=== PATIENT | female | born 1965 | race African-American/Black ===

== ENCOUNTER 2024-09-10 14:25 | Outpatient (AMB) | payer OTHER, MEDICARE, MEDICAID, SELFPAY ==
--- NOTE | 2024-09-10 14:29 | A.OFFPC_ITS ---
Vital Signs 09/10/24 14:38 Height 5 ft 1 in Weight 145 lb 8 oz BMI 27.5 BP 126/78 Blood Pressure Location Lt brachial Position Sitting Pulse 92 Pulse Source Pulse Oximeter Pulse Oximetry (%) 96 Oxygen Delivery Method Room Air Intake Visit Reasons: Est. Care Intake Note: New patient visit Allergies No Known Allergies Allergy (Verified 09/10/24 14:30) Tobacco use date assessed: 09/10/24 Dental Screening Dental Screen Date: 09/10/24 Did you have a dental visit in the last 12 months?: Yes Did you have a dental problem in the last 6 months where you did not have access to dental care?: No Was dental information given to patient?: Patient has dentist HPI HPI Comments History of Present Illness Details This is a 59 year old female with past medical history of allergies, frequent UTI, presenting to [facility] For three months last year had significant change in bowels. Increased frequency and looser stools. Infrequent heartburn. No vomiting. No blood in the stool. OA: On ibuprofen. Has significant pain in the right groin that travels down anterior, deep right thigh. Hurts when sitting, standing. No injury. Chronic low right back pain Frustrated by weight gain Colonoscopy: Had colonoscopy at [facility] ~ 50 ROS CONSTITUTIONAL: Denies weight loss, fever and chills. HEENT: Denies changes in vision and hearing. RESPIRATORY: Denies SOB and cough. CV: Denies palpitations and CP GI: Denies abdominal pain, nausea, vomiting and diarrhea. : Denies dysuria and urinary frequency. MSK: Denies new myalgia and joint pain. SKIN: Denies rash and pruritus. NEUROLOGICAL: Denies headache PSYCHIATRIC: Denies recent changes in mood. PHYSICAL EXAM: GENERAL: Alert and oriented x 3. NAD EYES: EOMI. Anicteric. HENT: Moist mucous membranes. No scleral icterus. No cervical lymphadenopathy. LUNGS: Clear to auscultation bilaterally. CARDIOVASCULAR: Regular rate and rhythm. No murmur. No JVD. ABDOMEN: Soft, non-tender +bs EXTREMITIES: No edema. Non-tender. SKIN: No rashes or lesions. Warm. NEUROLOGIC: No focal neurological deficits. CN II-XII grossly intact PSYCHIATRIC: Cooperative. Appropriate mood and affect [facility] Surgical History No pertinent past surgical history Family History Mother Alcoholic HTN (hypertension) Maternal Grandfather Cancer of unknown origin Other FH: mental illness Substance abuse Social History Housing: House Alcohol intake: former Comment: quit 20 years ago Patient Tobacco Use Status: Former Tobacco user Tobacco use type: Cigarette Cigarettes Per Day: 10 Years Smoked: 20 e-Cigarette/Vaping Use: Never Used Second Hand Smoke Exposure: No Substance Use Type: Former Substance User service: No Current occupational status: employed 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 1. Little interest or pleasure in doing things: not at all 2. Feeling down, depressed, or hopeless: not at all 3. Trouble falling or staying asleep, or sleeping too much: several days 4. Feeling tired or having little energy: several days 5. Poor appetite or overeating: nearly every day 6. Feeling bad about yourself - or that you are a failure or have let yourself or your family down: not at all 7. Trouble concentrating on things, such as reading the newspaper or watching television: not at all 8. Moving or speaking so slowly that other people could have noticed. Or the opposite - being so fidgety or restless that you have been moving around a lot more than usual: not at all 9. Thoughts that you would be better off or of hurting yourself in some way: not at all Total score: 5 Depression Screening Interpretation: Positive Depression Screening Follow-up: Declines treatment Depression Screening Done: Yes 77362 - PHQ-9 Billing: Yes Source: Developed by Drs. Fabio Harris, Pascale Gan, Michael Brandt and colleagues, with an educational aria from [employer]. Thrive Questionnaire Date Thrive assessed: 08/24/24 I am a: Patient What is your living situation today?: I have a steady place to live Within the past 12 months, did the food you bought not last and you didn't have the money to get more?: I choose not to answer this question Within the past 12 months, did you worry whether your food would run out before you got money to buy more?: I choose not to answer this question Do you have trouble paying for medicines?: No Do you have trouble getting transportation to medical appointments?: No Do you have trouble paying your heating and electricity bill?: No Do you have trouble taking care of your child, family member or friend?: No Do you have trouble with day-to-day activities such as bathing, preparing meals, shopping, managing finances, etc.?: No Are you currently unemployed and looking for a job?: No Are you interested in more education?: No Please select the resources that you would like help with: None Currently or been in a relationship where the following occur: No concerns reported THRIVE Score: 0 Physical exam (Primary Care) Vital Signs: Last Vital Signs Pulse 92 09/10/24 14:38 BP 126/78 09/10/24 14:38 Pulse Ox 96 09/10/24 14:38 Oxygen Delivery Method Room Air 09/10/24 14:38 BMI result Body Mass Index 27.5 Tobacco/Smoking Status: Tobacco use Status Tobacco use date assessed 09/10/24 09/10/24 14:43 Patient Tobacco Use Status Former Tobacco user 09/10/24 14:43 Tobacco use type Cigarette 09/10/24 14:43 e-Cigarette/Vaping Use Never Used 09/10/24 14:43 PHQ-9: PHQ-9 Score PHQ-9: Total score 5 09/13/24 08:46 Depression Screening Interpretation: Positive Depression Screening Follow-up: Declines treatment Thrive Assessment: Date of Thrive Assessment Date Thrive assessed 08/24/24 09/10/24 14:30 Currently or been in a relationship where the following occur: No concerns reported Coding Level of Care Code New Pt Level 4 (87407) Complex EM visit Add On G2211 Diagnoses Encounter to establish care Z76.89 Change in bowel function R19.8 Right inguinal pain R10.31 Laterality: right Additional Codes PHQ-9 - 81850 - PHQ-9 Billing: Yes ([id number]) Assessment & Plan Assessment & Plan (1) Encounter to establish care: Code(s): Z76.89 - Persons encountering health services in other specified circumstances Category: Medical Plan: 59 year old female presenting to [facility]. Past medical, surgical, social and family history reviewed (2) Change in bowel function: Code(s): R19.8 - Other specified symptoms and signs involving the digestive system and abdomen Category: Medical Plan: referral to GI Labs, stool ordered (3) Groin pain: Code(s): R10.30 - Lower abdominal pain, unspecified Category: Medical Qualifiers: Laterality: right Qualified Code(s): R10.31 - Right lower quadrant pain Plan: xray hip and lower back referral to rheumatology Orders: Orders Comprehensive Met. Panel 09/10/24 R35.0 - Frequency of micturition, Z13.0 - Encounter for screening for diseases of the blood and blood-forming organs and certain disorders involving the immune mechanism, Z13.220 - Encounter for screening for lipoid disorders, Z13.228 - Encounter for screening for other metabolic disorders TSH reflex Free T4 09/10/24 R35.0 - Frequency of micturition, Z13.0 - Encounter for screening for diseases of the blood and blood-forming organs and certain disorders involving the immune mechanism, Z13.220 - Encounter for screening for lipoid disorders, Z13.228 - Encounter for screening for other metabolic disorders Hemoglobin A1c 09/10/24 R35.0 - Frequency of micturition, Z13.0 - Encounter for screening for diseases of the blood and blood-forming organs and certain disorders involving the immune mechanism, Z13.220 - Encounter for screening for lipoid disorders, Z13.228 - Encounter for screening for other metabolic disorders H pylori Ag Stool 09/10/24 R35.0 - Frequency of micturition, Z13.0 - Encounter for screening for diseases of the blood and blood-forming organs and certain disorders involving the immune mechanism, Z13.220 - Encounter for screening for lipoid disorders, Z13.228 - Encounter for screening for other metabolic disorders Celiac Disease Panel 09/10/24 R19.5 - Other fecal abnormalities Complete Blood Count Auto Diff 09/10/24 R35.0 - Frequency of micturition, Z13.0 - Encounter for screening for diseases of the blood and blood-forming organs and certain disorders involving the immune mechanism, Z13.220 - Encounter for screening for lipoid disorders, Z13.228 - Encounter for screening for other metabolic disorders UA CC w/rflx Micro + Cult 09/10/24 R35.0 - Frequency of micturition, Z13.0 - Encounter for screening for diseases of the blood and blood-forming organs and certain disorders involving the immune mechanism, Z13.220 - Encounter for screening for lipoid disorders, Z13.228 - Encounter for screening for other metabolic disorders Calprotectin, Fecal 09/10/24 R35.0 - Frequency of micturition, Z13.0 - Encounter for screening for diseases of the blood and blood-forming organs and certain disorders involving the immune mechanism, Z13.220 - Encounter for screening for lipoid disorders, Z13.228 - Encounter for screening for other metabolic disorders Pancreatic Elastase-1 09/10/24 R35.0 - Frequency of micturition, Z13.0 - Encounter for screening for diseases of the blood and blood-forming organs and certain disorders involving the immune mechanism, Z13.220 - Encounter for screening for lipoid disorders, Z13.228 - Encounter for screening for other me tabolic disorders Ova and Parasite 09/10/24 R35.0 - Frequency of micturition, Z13.0 - Encounter for screening for diseases of the blood and blood-forming organs and certain disorders involving the immune mechanism, Z13.220 - Encounter for screening for lipoid disorders, Z13.228 - Encounter for screening for other metabolic disorders Lyme IgG/IgM w/reflex to WB 09/10/24 M54.50 - Low back pain, unspecified, R10.30 - Lower abdominal pain, unspecified, R19.5 - Other fecal abnormalities Erythrocyte Sedimentation Rate 09/10/24 M54.50 - Low back pain, unspecified, R10.30 - Lower abdominal pain, unspecified XR lumbar spine 2-3V 09/10/24 M54.50 - Low back pain, unspecified, R10.30 - Lower abdominal pain, unspecified XR hip RT w PEL1V 09/10/24 M54.50 - Low back pain, unspecified, R10.30 - Lower abdominal pain, unspecified Referrals Rheumatology Referral M54.50 - Low back pain, unspecified, R10.30 - Lower abdominal pain, unspecified COMMERCIAL ACCOUNTANT Referral Z12.4 - Encounter for screening for malignant neoplasm of cervix Gastroenterology Referral R19.5 - Other fecal abnormalities, R19.8 - Other specified symptoms and signs involving the digestive system and abdomen Medications: New semaglutide 3 mg PO DAILY 30 tabs 1RF 30 days
[2024-09-10 14:38] VITALS: BP 126/78; PULSE 92; O2SAT 96; BMI 27.5
--- OUTSIDE RECORDS SUMMARY | 2024-09-10 18:53 | XMS_ITS | Clinical Summary ---
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 DX:COPD, mi ld ([facility]) Dermatophytosis of nail 01/29/2013 DX:[place] tophytosis of nail Dyspareunia in female 12/29/2017 DX:Dyspare unia in female 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 DX:Histo ry of positive PPD History of substance abuse ([facility]) 12/16/2011 DX:History of substance abuse ([facility]); COMMENT: 01/2018 Alcohol and cocaine in remission Insomnia 01/21/2014 DX:Insomnia Major depressive disorder wi th single episode, in full remission ([facility]) 12/29/2017 DX:Major depressi ve disorder with single episode, in full remission ([facility]) Perimenopausal vasomotor symptoms 12/29/2017 DX:Perimenopausal vasomotor symptoms Secondary amenorrhea 12/29/2017 DX:Secondar y amenorrhea Family History Medical History Relation Name Comments Other cancer Maternal Grandfather Relation Name Status Comments Maternal Grandfather Social History Tobacco Use Types Packs/Day Years Used Date Smoking Tobacco: Former Smokeless Tobacco: Never Alcohol Use Standard Drinks/Week Comments Yes 0 (1 standard drink = 0.6 oz pur e alcohol) Sex and Gender Information Value Date Recorded Sex Assigned at Not on file Gender Identity Not on file Sexual Orientation Not on file Obstetrics History Plan of Treatment Health Maintenance Due Date Last Done Comments Breast Cancer Screening 1966 Pneumococcal Vaccine: Pediat rics (0 to 5 Years) and At-Risk Patients (6 to 64 Years) (1 of 2 - PCV) 1972 Cervical Cancer Screening: P ap Smear 1987 Hepatitis B Vaccines (2 of 3 - 19+ 3-dose series) 04/30/2004 04/02/2004 Zoster Vaccines (1 of 2) 2016 Colorectal Cancer Screening: Colonoscopy 07/18/2022 Depression Screening 07/18/2022 HIV Screening 07/18/2022 Hepatitis C Screening 07/18/2022 Social Influencers of Health Screening 07/18/2022 DTaP,Tdap,and Td Vaccines (2 - Td or Tdap) 01/15/2023 01/15/2013 COVID-19 Vaccine (1 - 2023-2 5 season) 2024 Influenza Vaccine (#1) 2024 HIB Vaccines Aged Out No longer eligi ble based on patient's age to complete this topic HPV Vaccines Aged Out No longer eligi ble based on patient's age to complete this topic Hepatitis A Vaccines Aged Out No long er eligible based on patient's age to complete this topic IPV Vaccines Aged Out No longer eligi ble based on patient's age to complete this topic MMR Vaccines Aged Out No longer eligi ble based on patient's age to complete this topic Meningococcal ACWY Vaccine Aged Out N o longer eligible based on patient's age to complete this topic RSV Immunization Patients Un levon 20 months Aged Out No longer eligible b ased on patient's age to complete this topic Varicella Vaccines Aged Out No longer eligible based on patient's age to complete this topic Care Teams Vegetable Farming Supervisor Relationship Specialty Start Date End Date Caitlyn Lawton MD PCP - General Internal Medicine 07/04/18
--- OUTSIDE RECORDS SUMMARY | 2024-09-10 18:53 | XMS_ITS | Patient Health Record ---
Author Organization Team [employer] [facility] Address [address] [place] [address] Care Team Providers Care Loans Consultant Name Role Phone RAJAT MOULTON NP Primary Care Provider Unavail able SAAD PETTIT Unavailable [phone] Allergies No Known Allergies Reason For Referral No Information Medications Medication SIG (Take, Route, Fr equency, Duration) Notes Start Date End Date Status Estradiol 0.1 MG/GM as directed (1 gram) Vaginal Once a day for 90 days 09/07/2019 Not-Takin g Valtrex 500 MG 1 tablet Orally Once a day for 90 days Active Claritin 10 MG 1 tablet Orally Once a day for 30 day(s) Active Social History Tobacco Use: Social History Observation Description Date Details (start date - stop date) Former Smoker NA - NA Tobacco Use/Smoking Question Answer Notes Are you a former smoker How long has it been since you last smoked? 1-5 years Alcohol Screen (Audit-C) Question Answer Notes Did you have a drink contain ing alcohol in the past year? Yes How often did you have a dri nk containing alcohol in the past year? 2 to 3 times a week (3 points) How many drinks did you have on a typical day when you were drinking in the past year? 1 or 2 drinks (0 point) How often did you have 6 or more drinks on one occasion in the past year? Never (0 point) Points 3 Interpretation Positive Sexual History Question Answer Notes Had sex in the past 12 months (vaginal, oral, or anal)? Yes with Men only Prevention strategies discussed: Other Tobacco use other than smoking: Question Answer Notes Are you an other tobacco user? No Problems Problem Type SNOMED Code ICD Code Onset Dates Problem Status W/U Status Risk Notes Problem Postmenopausal atrophic vaginitis (67357227) Postmenopausal atrophic vaginitis (N95.2) Active confirmed Problem Herpes simplex viral infection (15629468) Herpesviral infection, unspecified (B00.9) Active confirmed Plan Of Treatment Pending Test Test Name Order Date Urinalysis 09/07/2019 MM Digital Screening Mammogram 3D 2020 MM Digital Screening Mammogram 3D 2021 MM Digital Screening Mammogram 3D 2019 Insurance Providers Payer Name Payer Address Payer Phone Subscriber Number Group Number Insured Name Patient Relationship to Insured Coverage Start Date Coverage End Date [facility] [address] [place] [address] [id number] RHEA REEVES Self - patient is the insured Medical (General) History Medical History History ICD Code Headache R51 Herpesviral infection, unspecified B00.9 Surgical History Surgery Date(Month/Year) x 3 Hospitalization History Reason Date(Month/Year) childbirth
--- OUTSIDE RECORDS SUMMARY | 2024-09-10 18:53 | XMS_ITS | Clinical Summary ---
Author Organization [facility] Address [address] [place] [address] Care Team Providers Care Electrophysiology Technician Name Role Phone Unavailable Primary Care Provider Unavailabl e Source Comments PLEASE NOTE, if this patient is a minor, it may be UNLAWFUL to discuss sensitive information that is contained in these records (such as FAMILY PLANNING, MENTAL HEALTH or SUBSTANCE ABUSE) with the minor patient's parent or other person without the patient's specific authorization.[facility] Medications ciprofloxacin HCl (CIPRO) 250 mg tabletIndications :Urinary tract infection with hematuria, site unspecified Take 1 Tab by mouth 2 (two) times daily 6 Tab 03/13/2019 Active Social History Tobacco Use Types Packs/Day Years Used Date Smoking Tobacco: Never Smokeless Tobacco: Never Alcohol Use Standard Drinks/Week Comments Not Currently 0 (1 standard drink = 0.6 oz pur e alcohol) Social Connections Answer Date Recorded Social Connections and Isolation 0 04/09/2019 Financial Resource Strain Answer Date R ecorded Financial Resource Strain 0 2018 Stress Answer Date Recorded Stress 0 04/09/2019 Physical Activity Answer Date Recorded Physical Activity 0 04/09/2019 Food Insecurity Answer Date Recorded Food 0 04/09/2019 Transportation Needs Answer Date Record ed Transportation 0 04/09/2019 Housing Stability Answer Date Recorded Housing 0 04/09/2019 Safety and Environment Answer Date Robin rded Safety 0 04/09/2019 Utilities Answer Date Recorded Utilities 0 04/09/2019 Employment Answer Date Recorded Employment 0 04/09/2019 Comments No Sex and Gender Information Value Date Recorded Sex Assigned at Female 03/16/2019 8:04 AM PDT Legal Sex Female 6:07 AM PDT Gender Identity Female 03/16/2019 8:04 AM PDT Sexual Orientation Don't know 03/16/2019 8: 04 AM PDT Last Filed Vital Signs Vital Sign Reading Time Taken Comments Blood Pressure 111/71 03/13/2019 9:19 AM EDT Pulse 94 03/13/2019 9:19 AM EDT Temperature - - Respiratory Rate 18 03/13/2019 9:19 AM EDT Oxygen Saturation - - Inhaled Oxygen Concentration - - Weight 61.7 kg (136 lb) 03/13/2019 9:19 AM EDT Height - - Body Mass Index - - Plan of Treatment Not on file Insurance [facility]
== END 2024-09-10 15:21 | disposition home or self-care (01) ==
PROVIDERS: PCP Internal Medicine; Visit Provider Internal Medicine
DX: Z76.89 Persons encountering health services in other specified circumstances (principal); R19.8 Other specified symptoms and signs involving the digestive system and abdomen; R10.31 Right lower quadrant pain

== ENCOUNTER → 2024-09-10 14:25 | Outpatient (BNVA) | payer OTHER, MEDICARE, MEDICAID, SELFPAY | PROVIDERS: PCP Internal Medicine; Visit Provider Internal Medicine | DX: Z76.89 Persons encountering health services in other specified circumstances (principal); R19.8 Other specified symptoms and signs involving the digestive system and abdomen; R10.31 Right lower quadrant pain | CPT/HCPCS: 96127 ==

== ENCOUNTER 2024-09-10 15:31 | Outpatient (REF) | payer OTHER, SELFPAY ==
[2024-09-10 17:46] LABS: MANUAL DIFF FLAG NO
[2024-09-10 17:57] LABS: Appearance Urine Cloudy; Color Urine Yellow; Glucose Urine UA Negative (Negative); Leukocyte Esterase Urine Small (1+) (Negative); Nitrite Urine Negative (Negative); PH 5.5 (5.0-9.0); Specific Gravity - Urine 1.025 (1.005-1.025); UMIC TRIGGER UACC YES; Urine Blood Trace (Negative); Urine Ketones Negative (Negative); Urine Protein Negative (Neg-Trace)
[2024-09-10 18:00] LABS: Basophils Percent Auto 0.5 % (0-2); Eosinophils Absolute Auto 0.1 X10*3/uL (0.0-0.4); Eosinophils Percent Auto 1.2 % (0-4); Hemoglobin 13.4 g/dl (12.0-16.0); Imm Gran Abs Auto 0.01 X10*3/uL (0.00-0.03); Imm Gran Pct Auto 0.1 % (0.0-0.4); Lymphocytes Absolute Auto 3.1 X10*3/uL (1.2-4.9); Lymphocytes Percent Auto 40.5 % (20-40); Mean Corpuscular HGB Conc 33.5 g/dl (31.0-35.0); Mean Corpuscular Hemoglobin 29.3 pg (27.0-33.0); Mean Corpuscular Volume 87.5 fL (80.0-98.0); Mean Platelet Volume 10.6 fL (9.4-12.3); Monocytes Absolute Auto 0.4 X10*3/uL (0.1-1.2); Monocytes Percent Auto 5.4 % (2-11); Neutrophils Percent Auto 52.3 % (45-73); Platelet Count 309 X10*3/uL (160-400); Red Blood Count 4.57 X10*6/uL (4.20-5.50); Red Cell Distribution Width 13.6 % (11.0-16.0); White Blood Count 7.7 X10*3/uL (4.8-10.8)
[2024-09-10 18:02] LABS: Bacteria Urine 2+ (None Seen); Hyaline Casts Urine 0-2 /LPF (0-2); RBC Urine 0-2 /HPF (0-2); UACC Culture Trigger YES
[2024-09-10 18:13] LABS: Alanine Aminotransferase 26 U/L (0-31); Albumin Level 4.2 g/dL (3.5-5.0); Alkaline Phosphatase 66 U/L (39-117); Anion Gap 10 (12-20); Aspartate Amino Transferase 23 U/L (5-31); Bilirubin Total 0.3 mg/dL (0.0-1.0); Blood Urea Nitrogen 21 mg/dL (9-16); Calcium 9.2 mg/dL (8.4-10.2); Carbon Dioxide 22 mmol/L (22-29); Chloride 112 mmol/L (96-108); Estimated Glomerular Filt Rate > 60; Glucose Random 108 mg/dL (60-115); Sodium 140 mmol/L (135-145); Total Protein 7.6 g/dL (6.5-8.0)
[2024-09-10 18:30] LABS: TSH reflex Free T4 0.75 uIU/mL (0.32-4.0)
[2024-09-10 18:42] LABS: Erythrocyte Sedimentation Rate 10 MM/HR (0-20)
--- OUTSIDE RECORDS SUMMARY | 2024-09-10 19:32 | XMS_ITS | Clinical Summary ---
Author Organization [facility] Address [address] [place] [address] Care Team Providers Care Stitch Bonding Machine Drawer In Name Role Phone Caitlyn Lawton MD Primary Care Provider Medical History Medical History Date Comments Genital herpes 10/03/2007 DX:Genital herpe s Bipolar 1 disorder ([facility]) 10/11/2013 DX: Bipolar 1 disorder ([facility]) Allergic rhinitis 11/23/2013 DX:Allergic rh initis COPD, mild (CMS/HCC) 09/15/2016 DX:COPD, mi ld ([facility]) Dermatophytosis of nail 01/29/2013 DX:[place] tophytosis of nail Dyspareunia in female 12/29/2017 DX:Dyspare unia in female 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 DX:Histo ry of positive PPD History of substance abuse ([facility]) 12/16/2011 DX:History of substance abuse ([facility]); COMMENT: 01/2018 Alcohol and cocaine in remission Insomnia 01/21/2014 DX:Insomnia Major depressive disorder wi th single episode, in full remission ([facility]) 12/29/2017 DX:Major depressi ve disorder with single episode, in full remission ([facility]) Perimenopausal vasomotor symptoms 12/29/2017 DX:Perimenopausal vasomotor symptoms [...] age to complete this topic Care Teams Stitch Bonding Machine Drawer In Relationship Specialty Start Date End Date Caitlyn Lawton MD PCP - General Internal Medicine 07/04/18
--- OUTSIDE RECORDS SUMMARY | 2024-09-10 19:32 | XMS_ITS | Clinical Summary ---
Author Organization [facility] Address [address] [place] [address] Care Team Providers Care History Card Clerk Name Role Phone Unavailable Primary Care Provider [...] Plan of Treatment Not on file Insurance [facility]
[2024-09-11 07:54] LABS: Estimated Average Glucose 117 mg/dL; Hemoglobin A1C 135.0589 umol/L; Hemoglobin A1c % 5.7 % (<6.0); Total Hemoglobin (HGBA1C) 3506.6804 umol/L
[2024-09-11 13:17] LABS: Lyme Abs Screen <0.90 index
[2024-09-11 20:58] LABS: Immunoglobulin A 146 mg/dL (47-310); Transglutaminase IgA <1.0 U/mL
== END 2024-09-10 15:32 | disposition home or self-care (01) ==
LOC: HO.WFDLDS 15:31
PROVIDERS: Visit Provider Internal Medicine
DX: R19.5 Other fecal abnormalities (principal); Z13.220 Encounter for screening for lipoid disorders; Z13.0 Encounter for screening for diseases of the blood and blood-forming organs and certain disorders involving the immune mechanism; Z13.228 Encounter for screening for other metabolic disorders; R35.0 Frequency of micturition; R10.30 Lower abdominal pain, unspecified; M54.50 Low back pain, unspecified; Z13.1 Encounter for screening for diabetes mellitus
CPT/HCPCS: 36415; 80053; 81001; 82784; 83036; 84443; 85025; 85652; 86364; 86617; 86618; 87086

== ENCOUNTER 2024-12-17 06:51 | Emergency (ER) | payer OTHER, SELFPAY ==
--- NOTE | ~2024-12-17 | XR_ITS ---
EXAMINATION: XR HIP, RIGHT CLINICAL INFORMATION: pain COMPARISON: None available. TECHNIQUE: AP pelvis, and 2 views of the right hip. FINDINGS: There is no fracture, dislocation, or suspicious bone lesion. There is normal bony mineralization. There is normal alignment. There is minimal degenerative arthritis in both hip joints. Hip joints otherwise have a normal appearance. There is a normal acetabular coverage. The sacrum appears intact. The SI joints appear normal. No soft tissue abnormalities are evident. XR/XR hip RT w PEL1V IMPRESSION: No acute bony abnormalities. Electronically signed by: Kyle Waite MD 12/17/2024 08:46 AM EDT
[2024-12-17 06:59] VITALS: BP 177/87; PULSE 89; RESP 24; O2SAT 98; BMI 28.3
[2024-12-17 07:03] VITALS: TEMP 36.9
--- NOTE | 2024-12-17 07:04 | ECG_ITS ---
Test Reason : OVERDOSE Blood Pressure : */* mmHG Vent. Rate : 86 BPM Atrial Rate : 86 BPM P-R Int : 134 ms QRS Dur : 78 ms QT Int : 378 ms P-R-T Axes : 22 -9 5 degrees QTcB Int : 452 ms Normal sinus rhythm Minimal voltage criteria for LVH, may be normal variant ( R in aVL ) Borderline ECG No previous ECGs available Referred By: Rita Barber Electronically Signed By: MYA ALICEA
--- NOTE | 2024-12-17 07:13 | ED.OVERDOSE ---
HPI - Overdose General Chief Complaint: General Medical Stated Complaint: Took too much tramadol, hip pain Time Seen by Provider: 12/17/24 07:00 Source: patient Mode of arrival: ambulatory Limitations: no limitations History of Present Illness ED Provider: KHLOE SONG Narrative: 59 yo female with PMH of allergies but no other medications no psych medications who was prescribed tramadol by her PCP recently for atraumatic R hip pain. NO xrays done. The patient notes her pain was more severe last night and so she ended up taking extra tramadol a total of 300mg since 9pm. She states she now feels her body is tight and shaking. No hx of IVDA with the hip, numnbess, weakness, rash. Tramadol is also a new medication for her. The only other medication is loratadine complaint: accidental overdose Onset (ago): hour(s) (9pm) Substance Ingested total of 300mg tramadol: Strength of Substance: 100 Number of Pills Ingested: 3 Total Dose: 300 How Overdose Was Discovered: called 911 Context: Accidental Overdose: other (had hip pain) Associated symptoms: headaches, dizziness and other Treatments Prior to Arrival: none Related Data Home Medications ?Medication ?Instructions ?Recorded ?Confirmed ibuprofen 600 mg tablet mg PO 09/10/24 Previous Rx's ?Medication ?Instructions ?Recorded semaglutide 3 mg tablet 3 mg PO DAILY 30 days #30 tabs 09/10/24 tramadol 50 mg tablet 50 mg PO BID PRN pain #14 tabs 09/19/24 loratadine 10 mg capsule (Allergy 10 mg PO DAILY #90 caps 12/05/24 Relief (loratadine)) lidocaine 5 % topical patch 1 patch topical DAILY #30 ea 12/17/24 methocarbamol 750 mg tablet 750 mg PO BID PRN muscle spasm #20 12/17/24 tabs prednisone 20 mg tablet 40 mg (2 x 20 mg) PO DAILY 5 days 12/17/24 #10 tabs Allergies Allergy/AdvReac Type Severity Reaction Status Date / Time No Known Allergies Allergy Verified 12/17/24 07:01 Review of Systems Review of Systems: Constitutional : No Fever, pos Chills, No Fatigue ENT/Mouth : No sore throat, No Rhinorrhea Eyes: No Eye Pain, No Swelling, No Redness Cardiovascular : No Chest Pain, No SOB, No Dyspnea on Exertion Respiratory : No Cough, No Sputum Gastrointestinal : No Nausea, No Vomiting, No Diarrhea, No abdominal Pain Genitourinary : No Dysuria, No Urinary Frequency, No Hematuria, Musculoskeletal : No joint pain, No Myalgias, No Joint Swelling Skin : No Skin Lesions, No rash Neuro : pos Weakness, No Numbness, No Dizziness, no Headache Psych : pos Anxiety/Panic, No Depression All other systems reviewed and are negative PMFSH Past Medical History Attestation statement: The following information was validated with the patient. Source: old records reviewed Medical History Screening for hyperlipidemia Low back pain Surgical History No pertinent past surgical history Family History Family History Mother Alcoholic HTN (hypertension) Maternal Grandfather Cancer of unknown origin Other FH: mental illness Substance abuse Social History Social History Housing: House Alcohol intake: former Comment: quit 20 years ago Patient Tobacco Use Status: Former Tobacco user Tobacco use type: Cigarette Cigarettes Per Day: 10 Years Smoked: 20 Smoked in Last 30 Days: Yes e-Cigarette/Vaping Use: Never Used Second Hand Smoke Exposure: No Use of substances other than those prescribed or required for medical reasons: No Substance Use Type: Former Substance User Advance Directives: No Advance Directives Information Provided: Yes Do you have a plan to hurt others: No Plan service: No Current occupational status: employed 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 Oriented X3. anxious mild acute distress. Eyes: Pupils equal, round and reactive to light. 3mm ENT: Pharynx normal. Neck: Normal inspection. Neck supple. CVS: Normal heart rate and rhythm. Pulses normal. Respiratory: No respiratory distress. Breath sounds normal. Abdomen: Soft and nontender. Skin: Skin warm and dry. Normal skin color. Normal skin turgor. Extremities: No lower extremity edema. No calf ttp Neuro: Oriented X 3. No motor deficit. No sensory deficit. CN2-12 intact. no clonus and no hyperreflexia Medications Administered Discontinued Medications Generic Name Dose Route Start Last Admin Trade Name Farrukhq PRN Reason Stop Dose Admin Diazepam 2.5 mg 12/17/24 07:05 12/17/24 07:26 Diazepam 10 Mg/2 Ml Cartridge IVPUSH 12/17/24 07:06 2.5 mg STAT STA Administration Ketorolac Tromethamine 15 mg 12/17/24 08:25 12/17/24 08:53 Ketorolac Tromethamine 15 Mg/Ml Vial IVPUSH 12/17/24 08:26 15 mg ONCE ONE Administration Medical Decision Making Medical Decision Making [facility] Narrative: 59 yo female with no sig PMH only on loratadine who comes in after feeling weird and shaky after taking 3 doses of 100mg tramadol to treat undifferented R hip pain for 6 weeks. She has no numbness, weakness, clonus, hyperreflexia and pupils are 3mm - no signs of serotonin syndrome at this time. Will obtain EKG for qtc, labs, start on IV valium and monitor. She denies SI states it was done to treat pain. patient now states she took 100mg at 3pm yesterday, 100mg at 9pm yesterday and then 100mg at 5am today Differential Diagnosis Differential Diagnoses: The differential diagnosis associated with the presentation includes overdose, serotonin syndrome, anxiety hip pain - arthralgia no signs of infection and normal distal pulses Admission/Observation Consideration of admission/observation: Escalation of care including admission/observation considered labs and EKG reassuring VS stable xray no acute findings would start on flexeril, pain patches and prednisone in case of tendonitis hold tramadol improved stable for DC - no signs of serotonin syndrome Lab Data [facility] Lab Attestation statement: I reviewed the patient's lab results. 12/17/24 07:45 12/17/24 07:45 Labs: Lab Results 12/17/24 Range/Units 07:45 WBC 8.2 (4.8-10.8) X10*3/uL RBC 4.43 (4.20-5.50) X10*6/uL Hgb 13.0 (12.0-16.0) g/dl Hct 38.1 (37.0-47.0) % MCV 86.0 (80.0-98.0) fL MCH 29.3 (27.0-33.0) pg MCHC 34.1 (31.0-35.0) g/dl RDW 13.4 (11.0-16.0) % Plt Count Not Reportable MPV Not Reportable Immature Gran % (Auto) 0.4 (0.0-0.4) % Neut % (Auto) 70.1 (45-73) % Lymph % (Auto) 21.9 (20-40) % [place] % (Auto) 6.6 (2-11) % Eos % (Auto) 0.6 (0-4) % Baso % (Auto) 0.4 (0-2) % Lymph # (Auto) 1.8 (1.2-4.9) X10*3/uL [place] # (Auto) 0.5 (0.1-1.2) X10*3/uL Eos # (Auto) 0.1 (0.0-0.4) X10*3/uL Baso # (Auto) 0.0 (0.0-0.2) X10*3/uL Abs Immat Gran (auto) 0.03 (0.00-0.03) X10*3/uL Absolute Neuts (auto) 5.8 (2.0-8.3) x10*3/uL Absolute Nucleated RBC 0.000 (0.0-0.012) X10*3/uL Nucleated RBC % (auto) 0.0 (0.0-0.2) /100WBC Smear Tech's Comments VERIFIED Sodium 139 (135-145) mmol/L Potassium 3.9 (3.3-5.1) mmol/L Chloride 108 (96-108) mmol/L Carbon Dioxide 21 L (22-29) mmol/L Anion Gap 14 (12-20) BUN 12 (9-16) mg/dL Creatinine 0.70 (0.5-1.4) mg/dL Estim Creat Clear Calc 77.3 Estimated GFR > 60 Random Glucose 90 (60-115) mg/dL Calcium 8.8 (8.4-10.2) mg/dL Magnesium 1.9 (1.6-2.6) mg/dL Total Bilirubin 0.6 (0.0-1.0) mg/dL Direct Bilirubin 0.2 (0.0-0.5) mg/dL AST 26 (5-31) U/L ALT 25 (0-31) U/L Alkaline Phosphatase 53 (39-117) U/L Total Protein 7.2 (6.5-8.0) g/dL Albumin 4.1 (3.5-5.0) g/dL Independent Interpretation I performed an independent interpretation of an: EKG and Plain X-Ray (arthritis) Interpretation: Rate: 86 Rhythm: NSR [place]: left Normal P waves. Normal RITA. Normal QRS complex. ST T wave : inverted t waves V1 and V2, III qTC: 452 prior studies: no acute ischemia The study has been interpreted contemporaneously by me. . Radiology Impression Discussion of test interpretation with radiology: I have reviewed the radiologist's reading. Independent Historian Clinical information obtained from an independent historian. History obtained from or confirmed by: Spouse External Record Review External record reviewed: Outpatient record Prescription Management I considered prescription management with: Other Discharge Plan Discharge Clinical Impression: Overdose Qualifiers: Encounter type: initial encounter Injury intent: accidental or unintentional Qualified Code(s): T50.901A - Poisoning by unspecified drugs, medicaments and biological substances, accidental (unintentional), initial encounter Hip joint pain Qualifiers: Laterality: right Qualified Code(s): M25.551 - Pain in right hip Patient Disposition: Home, Self-Care Instructions: Arthralgia (ED), Adult Overdose (ED) Additional Instructions: STOP TAKING TRAMADOL PLEASE FOLLOW UP WITH YOUR DOCTOR at this time would start you on muscle relaxers (avoid tylenol as there is some tylenol in it), pain patches and steroids in case of tendonitis. Your xray shows nothing severe. rest and stay hydrated return for any worsening symptoms or concerns FINDINGS: There is no fracture, dislocation, or suspicious bone lesion. There is normal bony mineralization. There is normal alignment. There is minimal degenerative arthritis in both hip joints. Hip joints otherwise have a normal appearance. There is a normal acetabular coverage. The sacrum appears intact. The SI joints appear normal. No soft tissue abnormalities are evident. XR/XR hip RT w PEL1V IMPRESSION: No acute bony abnormalities. Electronically signed by: Klye Waite MD 12/17/2024 08:46 AM EDT RP Prescriptions: New prednisone 20 mg tablet 40 mg PO DAILY 5 Days Qty: 10 0RF lidocaine 5 % adhesive patch,medicated 1 patch topical DAILY Qty: 30 0RF Rx Instructions: leave on most painful area for up to 12 hrs methocarbamol 750 mg tablet 750 mg PO BID PRN (Reason: muscle spasm) Qty: 20 0RF No Action tramadol 50 mg tablet 50 mg PO BID PRN (Reason: pain) Qty: 14 0RF Allergy Relief (loratadine) 10 mg capsule 10 mg PO DAILY Qty: 90 0RF ibuprofen 600 mg tablet PO semaglutide 3 mg tablet 3 mg PO DAILY 30 Days Qty: 30 1RF Stand Alone Forms: Work/School Release Print Language: Choose Not To Answer
[2024-12-17] MEDS: diazePAM 10 MG/2 ML CARTRIDGE 2.5 MG IVPUSH (07:26)
--- OUTSIDE RECORDS SUMMARY | 2024-12-17 07:45 | XMS_ITS | Clinical Summary ---
Author Organization [facility] [facility] Address [address] [place] [address] Care Team Providers Care Electrochemist Name Role Phone Caitlyn Lawton MD Primary Care Provider Medical History Medical History Date Comments Genital herpes 10/03/2007 DX:Genital herpe s Bipolar 1 disorder (CMS/HCC V24, CMS/HCC V28) 10/11/2013 DX:Bipolar 1 disorder ([facility]) Allergic rhinitis 11/23/2013 DX:Allergic rh initis COPD, mild (CMS/HCC V24, CMS/HCC V28) 09/15/2016 DX:COPD, mild ([facility]) Dermatophytosis of nail 01/29/2013 DX:[place] tophytosis of nail Dyspareunia in female 12/29/2017 DX:Dyspare unia in female 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 DX:Histo ry of positive PPD History of substance abuse ( CMS/HCC V24, CMS/HCC V28) 12/16/2011 DX:History of substance abus e ([facility]); COMMENT: 01/2018 Alcohol and cocaine in remission Insomnia 01/21/2014 DX:Insomnia Major depressive disorder wi th single episode, in full remission (CMS/HCC V24) 12/29/2017 DX:Major depr essive disorder with single episode, in full remission ([facility]) Perimenopausal vasomotor symptoms 12/29/2017 DX:Perimenopausal vasomotor symptoms Secondary amenorrhea 12/29/2017 DX:Secondar y amenorrhea Family History Medical History Relation Name Comments Other cancer Maternal Grandfather Relation Name Status Comments Maternal Grandfather Social History Tobacco Use Types Packs/Day Years Used Date Smoking Tobacco: Former Smokeless Tobacco: Never Alcohol Use Standard Drinks/Week Comments Yes 0 (1 standard drink = 0.6 oz pur e alcohol) Comments Unknown Sex and Gender Information Value Date Recorded Sex Assigned at Not on file Legal Sex Female 7:33 AM EST Gender Identity Not on file Sexual Orientation Not on file Obstetrics History Plan of Treatment Health Maintenance Due Date Last Done Comments Breast Cancer Screening 1966 Pneumococcal Vaccine: 50+ Ye ars (1 of 2 - PCV) 1985 Pneumococcal Vaccine: Pediat rics (0 to 5 Years) and At-Risk Patients (6 to 64 Years) (1 of 2 - PCV) 1985 Cervical Cancer Screening: P ap Smear 1987 Hepatitis B Vaccines (2 of 3 - 19+ 3-dose series) 04/30/2004 04/02/2004 Zoster Vaccines (1 of 2) 2016 Colorectal Cancer Screening: Colonoscopy 07/18/2022 Depression Screening 07/18/2022 HIV Screening 07/18/2022 Hepatitis C Screening 07/18/2022 Social Influencers of Health Screening 07/18/2022 DTaP,Tdap,and Td Vaccines (2 - Td or Tdap) 01/15/2023 01/15/2013 COVID-19 Vaccine ( - 2023-2 5 season) 2024 Influenza Vaccine (Season Ended) 2025 HIB Vaccines Aged Out No longer eligi [...] patient's age to complete this topic Meningococcal B Vaccine Aged Out No l onger eligible based on patient's age to complete this topic RSV Immunization Patients Un levon 20 months Aged Out No longer eligible b ased on patient's age to complete this topic Varicella Vaccines Aged Out No longer eligible based on patient's age to complete this topic Care Teams Electrochemist Relationship Specialty Start Date End Date Caitlyn Lawton MD PCP - General Internal Medicine 07/04/18
--- OUTSIDE RECORDS SUMMARY | 2024-12-17 07:45 | XMS_ITS | Patient Health Record ---
Author Organization [facility] [employer] [facility] Address [address] [place] [address] Care Team Providers Care Dog Day Care Attendant Name Role Phone RAJAT MOULTON NP Primary Care Provider Unavail able SAAD PETTIT Unavailable [phone] Allergies No Known Allergies Reason For Referral [...] Status Risk Notes Problem Postmenopausal atrophic vaginitis (N95.2) Active confirmed Problem Herpes simplex viral infection (28835452) Herpesviral infection, unspecified (B00.9) Active confirmed Plan Of Treatment Pending Test Test Name Order Date Urinalysis 09/07/2019 MM Digital Screening Mammogram 3D 2020 MM Digital Screening Mammogram 3D 2021 MM Digital Screening Mammogram 3D 2019 Insurance Providers Payer Name Payer Address Payer Phone Subscriber Number Group Number Insured Name Patient Relationship to Insured Coverage Start Date Coverage End Date [facility] [address] [place] [id number] RHEA REEVES Self - patient is the insured Medical (General) History Medical History History ICD Code Headache R51 Herpesviral infection, unspecified B00.9 Surgical History Surgery Date(Month/Year) x 3 Hospitalization History Reason Date(Month/Year) childbirth
--- OUTSIDE RECORDS SUMMARY | 2024-12-17 07:45 | XMS_ITS | Clinical Summary ---
Author Organization [facility] Address [address] [place] [address] Care Team Providers Care Road Machine Runner Name Role Phone Unavailable Primary Care Provider [...] Plan of Treatment Not on file Insurance [facility]
[2024-12-17 08:04] LABS: Basophils Percent Auto 0.4 % (0-2); Eosinophils Absolute Auto 0.1 X10*3/uL (0.0-0.4); Eosinophils Percent Auto 0.6 % (0-4); Hematocrit 38.1 % (37.0-47.0); Imm Gran Abs Auto 0.03 X10*3/uL (0.00-0.03); Imm Gran Pct Auto 0.4 % (0.0-0.4); Lymphocytes Absolute Auto 1.8 X10*3/uL (1.2-4.9); Lymphocytes Percent Auto 21.9 % (20-40); MANUAL DIFF FLAG SCAN; Mean Corpuscular HGB Conc 34.1 g/dl (31.0-35.0); Mean Corpuscular Hemoglobin 29.3 pg (27.0-33.0); Monocytes Absolute Auto 0.5 X10*3/uL (0.1-1.2); Monocytes Percent Auto 6.6 % (2-11); Neutrophils Absolute Auto 5.8 x10*3/uL (2.0-8.3); Neutrophils Percent Auto 70.1 % (45-73); PLT CLUMP 1; Red Blood Count 4.43 X10*6/uL (4.20-5.50); Red Cell Distribution Width 13.4 % (11.0-16.0); SCAN SMEAR FLAG 1
[2024-12-17 08:05] LABS: White Blood Count 8.2 X10*3/uL (4.8-10.8)
[2024-12-17 08:10] LABS: Alanine Aminotransferase 25 U/L (0-31); Albumin Level 4.1 g/dL (3.5-5.0); Alkaline Phosphatase 53 U/L (39-117); Anion Gap 14 (12-20); Aspartate Amino Transferase 26 U/L (5-31); Bilirubin Direct 0.2 mg/dL (0.0-0.5); Bilirubin Total 0.6 mg/dL (0.0-1.0); Blood Urea Nitrogen 12 mg/dL (9-16); Calcium 8.8 mg/dL (8.4-10.2); Carbon Dioxide 21 mmol/L (22-29); Chloride 108 mmol/L (96-108); Creatinine Clr Calc Pharmacy 77.3; Estimated Glomerular Filt Rate > 60; Glucose Random 90 mg/dL (60-115); Magnesium 1.9 mg/dL (1.6-2.6); Potassium 3.9 mmol/L (3.3-5.1); Sodium 139 mmol/L (135-145); Total Protein 7.2 g/dL (6.5-8.0)
[2024-12-17 08:24] LABS: SLIDE REVIEW VERIFIED
[2024-12-17 08:35] VITALS: BP 106/57; PULSE 75; RESP 16; O2SAT 100
[2024-12-17] MEDS: Ketorolac Tromethamine 15 MG/ML VIAL IVPUSH (08:53)
[2024-12-17 10:05] VITALS: BP 144/56; PULSE 72; RESP 18; TEMP 36.6; O2SAT 98
== END 2024-12-17 10:06 | disposition home or self-care (01) ==
PROVIDERS: Emergency Provider Emergency Medicine; PCP Internal Medicine
DX: T40.421A Poisoning by tramadol, accidental (unintentional), initial encounter (principal); M25.551 Pain in right hip; R94.31 Abnormal electrocardiogram [ECG] [EKG]; Z79.899 Other long term (current) drug therapy; Z87.891 Personal history of nicotine dependence
CPT/HCPCS: 36415; 73502; 80048; 80076; 83735; 85025; 93005; 96374; 96375; 99284; J1885; J3360

== ENCOUNTER → 2024-12-17 07:04 | Outpatient (BNV) | payer OTHER, SELFPAY | PROVIDERS: Emergency Provider Emergency Medicine; PCP Internal Medicine; Visit Provider Internal Medicine | DX: T50.901A Poisoning by unspecified drugs, medicaments and biological substances, accidental (unintentional), initial encounter (principal) | CPT/HCPCS: 93010 ==

== ENCOUNTER → 2024-12-17 07:12 | Outpatient (BNV) | payer OTHER, SELFPAY | PROVIDERS: Emergency Provider Emergency Medicine; PCP Internal Medicine; Visit Provider Radiology Diagnostic Radiology | DX: M25.551 Pain in right hip (principal) | CPT/HCPCS: 73502 ==

== ENCOUNTER 2024-12-25 11:56 | Outpatient (AMB) | payer OTHER, SELFPAY ==
--- NOTE | 2024-12-25 11:59 | A.OFFVIS_ITS ---
Vital Signs 12/25/24 12:00 Height 5 ft 1 in Weight 140 lb 6.951 oz BMI 26.5 BP 150/110 H Blood Pressure Location Rt brachial Position Standing Pulse 94 Pulse Source Pulse Oximeter Pulse Oximetry (%) 99 Oxygen Delivery Method Room Air Intake Visit Reasons: back pain Intake Note: Patient presents today for lower back pain. pt is having difficulty with right leg pain and is not able to walk properly. Accompanied by: Self / Same As Patient Allergies No Known Allergies Allergy (Verified 12/25/24 12:00) HPI HPI back pain: Details: New Patient evaluation. 6 week onset of right hip pain radiating to right buttocks progressing to involve right thigh. Constant. Pain got worse this past Tuesday. No falls. No trauma. Laying more than 30 minutes aggravates pain. Ibuprofen 1800mg every 6 hours without benefit for the last 6 weeks. Yesterday she took tramadol 500mg without benefit. She had tremors and went to ED. Tylenol is ineffective. Lidocaine patch is ineffective. Methacarbamol is ineffective. Occationally drinks alcohol. No use of recreational drugs. 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 She takes loratadine for allergies: trees, pollen etc. No pmx or psx. [facility] Medical History Screening for hyperlipidemia Low back pain Surgical History No pertinent past surgical history Family History Mother Alcoholic HTN (hypertension) Maternal Grandfather Cancer of unknown origin Other FH: mental illness Substance abuse Social History Housing: House Alcohol intake: former Comment: quit 20 years ago Patient Tobacco Use Status: Former Tobacco user Tobacco use type: Cigarette Cigarettes Per Day: 10 Years Smoked: 20 e-Cigarette/Vaping Use: Never Used Second Hand Smoke Exposure: No Substance Use Type: Former Substance User service: No Current occupational status: employed 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 She has tenderness of right trochanteric bursa. Good lumbar flexion. Limited hip flexion and external rotation due to pain. Office Procedures AMB Joint Injection/Aspiration Joint Injection/Aspiration Details: Right trochanteric bursa Prep: site was prepped using aseptic technique Injected: 40 mg of, Kenalog, with 1 mL of and 1% plain lidocaine Procedure: The patient tolerated the procedure well. Postprocedure protocol was discussed with patient. Coding 01888 - Glenohumeral/Tronchanteric Bursa/Intraarticular Procedure code (CPT) selection complete Office Meds lidocaine (PF) 10 mg/mL (1 %) injection solution Performing Provider: Serge Vasquez MD Performing Location: [facility] [place] [facility] Administered by: Serge Vasquez MD on 12/25/24 13:34 Dose Route Admin Location Dispensed Lot Number Expiration Date [facility] Windshield Repair Technician 10 mg Infiltration 2 mL [id number] [facility] Kenalog 40 mg/mL suspension for injection Performing Provider: Serge Vasquez MD Performing Location: [facility] [place] [facility] Administered by: Serge Vasquez MD on 12/25/24 13:34 Dose Route Admin Location Dispensed Lot Number Expiration Date [facility] Windshield Repair Technician 40 mg intrabursal 1 mL [place] [id number] [facility] Assessment & Plan Assessment & Plan (1) Trochanteric bursitis, right hip: Comment: Pain is uncontrolled radiating to groin region. We discussed conservative management. She is taking too much ibuprofen. Failed Tylenol, tramadol, methocarbamol. X-ray of bilateral hips revealed minimal osteoarthritis, which is likely not the primary origin of her pain. Code(s): M70.61 - Trochanteric bursitis, right hip Category: Medical Plan: Patient received right trochanteric bursa cortisone injection Labs ordered with kidney function and liver function Letter given to patient to excuse her from work with return date December 27. Patient may call office if she needs more time to rest for an extension. return to clinic in 1-2 months (2) Lumbar radiculopathy, chronic: Comment: 6 week history. Code(s): M54.16 - Radiculopathy, lumbar region Category: Medical Plan: L-spine x-ray ordered Labs ordered to check kidney function liver function. If normal, I will prescribe alternate NSAID. Return to clinic in 1-2 months Orders: Orders Alanine Aminotransferase Today M70.61 - Trochanteric bursitis, right hip Aspartate Amino Transferase Today M70.61 - Trochanteric bursitis, right hip Creatinine Today M70.61 - Trochanteric bursitis, right hip AMB Joint Injection/Aspiration Today M70.61 - Trochanteric bursitis, right hip XR lumbar spine 2-3V Today M70.61 - Trochanteric bursitis, right hip Complete Blood Count Auto Diff Today M70.61 - Trochanteric bursitis, right hip Medications: New Kenalog (triamcinolone acetonide) 40 mg intrabursal ONCE 1 mL 0RF NS M70.61 - Trochanteric bursitis, right hip lidocaine (PF) 10 mg Infiltration ONCE 1 mL 0RF M70.61 - Trochanteric bursitis, right hip Coding Level of Care Code New Pt Level 4 (46837) Diagnoses Trochanteric bursitis, right hip M70.61 Lumbar radiculopathy, chronic M54.16 CPT Codes Coding - Joint 7: 99413 - Glenohumeral/Tronchanteric Bursa/Intraarticular ([id number])
[2024-12-25 12:00] VITALS: BP 150/110; PULSE 94; O2SAT 99; BMI 26.5
--- OUTSIDE RECORDS SUMMARY | 2024-12-25 13:19 | XMS_ITS | Clinical Summary ---
Author Organization [facility] Address [address] [place] [address] Care Team Providers Care Warhead Maintenance Specialist Name Role Phone Unavailable Primary Care Provider [...] Plan of Treatment Not on file Insurance [facility]
--- OUTSIDE RECORDS SUMMARY | 2024-12-25 13:19 | XMS_ITS | Clinical Summary ---
Author Organization [employer] [facility] Address [address] [place] [address] Care Team Providers Care Grainer Machine Name Role Phone Caitlyn Lawton MD Primary Care Provider Medical History Medical History Date Comments Genital herpes 10/03/2007 DX:Genital herpe s Bipolar 1 disorder (CMS/HCC V24, CMS/HCC V28) 10/11/2013 DX:Bipolar 1 disorder ([facility]) Allergic rhinitis 11/23/2013 DX:Allergic rh initis COPD, mild (CMS/HCC V24, CMS/HCC V28) 09/15/2016 DX:COPD, mild ([facility]) Dermatophytosis of nail 01/29/2013 DX:[place] tophytosis of nail Dyspareunia in female 12/29/2017 DX:Dyspare unia in female 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 DX:Histo ry of positive PPD History of substance abuse ( CMS/HCC V24, CMS/HCC V28) 12/16/2011 DX:History of substance abus e ([facility]); COMMENT: 01/2018 Alcohol and cocaine in remission Insomnia 01/21/2014 DX:Insomnia Major depressive disorder wi th single episode, in full remission (CMS/HCC V24) 12/29/2017 DX:Major depr essive disorder with single episode, in full remission ([facility]) Perimenopausal vasomotor symptoms 12/29/2017 DX:Perimenopausal vasomotor symptoms [...] age to complete this topic Care Teams Grainer Machine Relationship Specialty Start Date End Date Caitlyn Lawton MD PCP - General Internal Medicine 07/04/18
--- OUTSIDE RECORDS SUMMARY | 2024-12-25 13:19 | XMS_ITS | Patient Health Record ---
Author Organization [facility] Address [address] [place] [address] Care Team Providers Care Treatment Manager Name Role Phone RAJAT MOULTON NP Primary Care Provider Unavail able SAAD PETTIT Unavailable [phone] Allergies No Known Allergies Reason For Referral [...] Status Risk Notes Problem Postmenopausal atrophic vaginitis (73386956) Postmenopausal atrophic vaginitis (N95.2) Active confirmed Problem Herpesviral infection, unspecified (B00.9) Active confirmed Plan Of Treatment Pending Test Test Name Order Date Urinalysis 09/07/2019 MM Digital Screening Mammogram 3D 2020 MM Digital Screening Mammogram 3D 2021 MM Digital Screening Mammogram 3D 2019 Insurance Providers Payer Name Payer Address Payer Phone Subscriber Number Group Number Insured Name Patient Relationship to Insured Coverage Start Date Coverage End Date [facility] [address] [place] [address] [id number] RHEA REEVES Self - patient is the insured Medical (General) History Medical History History ICD Code Headache R51 Herpesviral infection, unspecified B00.9 Surgical History Surgery Date(Month/Year) x 3 Hospitalization History Reason Date(Month/Year) childbirth
== END 2024-12-25 13:39 | disposition home or self-care (01) ==
LOC: HO.RHES 11:56
PROVIDERS: PCP Internal Medicine; Visit Provider Internal Medicine Rheumatology
DX: M70.61 Trochanteric bursitis, right hip (principal); M54.16 Radiculopathy, lumbar region
CPT/HCPCS: 20610; 99203

== ENCOUNTER 2024-12-25 11:56 | Outpatient (REF) | payer OTHER, SELFPAY ==
--- NOTE | ~2024-12-25 | XR_ITS ---
EXAMINATION: XR LUMBOSACRAL SPINE CLINICAL INFORMATION: M70.61 - Trochanteric bursitis, right hip COMPARISON: None available. TECHNIQUE: Three views of the lumbosacral spine. FINDINGS: Rudimentary ribs at T12. Endplate sclerosis marginal osteophyte formation and decreased intervertebral disc height at L4-5. Multilevel marginal osteophyte formation and endplate sclerosis throughout the axial skeleton. No acute cortical disruption or gross malalignment. Probable discontinuous sacrococcyx junction. XR/XR lumbar spine 2-3V IMPRESSION: Multilevel thoracolumbar spondylosis more pronounced at L4-5. Probable subacute to old trauma at the sacrococcyx junction. Electronically signed by: Ab Farooq MD 12/25/2024 02:37 PM EDT
--- OUTSIDE RECORDS SUMMARY | 2024-12-25 14:46 | XMS_ITS | Clinical Summary ---
Author Organization [facility] Address [address] [place] [address] Care Team Providers Care Pickle Cutter Name Role Phone Unavailable Primary Care Provider [...] Plan of Treatment Not on file Insurance [facility]
--- OUTSIDE RECORDS SUMMARY | 2024-12-25 14:46 | XMS_ITS | Clinical Summary ---
Author Organization [facility] Address [address] [place] [address] Care Team Providers Care Store Receiver Name Role Phone Caitlyn Lawton MD Primary Care Provider Medical History Medical History Date Comments Genital herpes 10/03/2007 DX:Genital herpe s Bipolar 1 disorder (CMS/HCC V24, CMS/HCC V28) 10/11/2013 DX:Bipolar 1 disorder ([facility]) Allergic rhinitis 11/23/2013 DX:Allergic rh initis COPD, mild (CMS/HCC V24, CMS/HCC V28) 09/15/2016 DX:COPD, mild ([facility]) Dermatophytosis of nail 01/29/2013 DX:[place] tophytosis of nail Dyspareunia in female 12/29/2017 DX:Dyspare unia in female 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 DX:Histo ry of positive PPD History of substance abuse ( CMS/HCC V24, CMS/HCC V28) 12/16/2011 DX:History of substance abus e ([facility]); COMMENT: 01/2018 Alcohol and cocaine in remission Insomnia 01/21/2014 DX:Insomnia Major depressive disorder wi th single episode, in full remission (CMS/HCC V24) 12/29/2017 DX:Major depr essive disorder with single episode, in full remission ([facility]) Perimenopausal vasomotor symptoms 12/29/2017 DX:Perimenopausal [...] age to complete this topic Care Teams Store Receiver Relationship Specialty Start Date End Date Caitlyn Lawton MD PCP - General Internal Medicine 07/04/18
[2024-12-25 18:45] LABS: Alanine Aminotransferase 25 U/L (0-31); Aspartate Amino Transferase 30 U/L (5-31); Estimated Glomerular Filt Rate > 60
== END 2024-12-25 11:57 | disposition home or self-care (01) ==
LOC: HO.XRAY 11:56
PROVIDERS: PCP Internal Medicine; Visit Provider Internal Medicine Rheumatology
DX: M70.61 Trochanteric bursitis, right hip (principal); M54.16 Radiculopathy, lumbar region
CPT/HCPCS: 20610; 36415; 72100; 82565; 84450; 84460; J2003; J3300

== ENCOUNTER → 2024-12-25 14:13 | Outpatient (BNV) | payer OTHER, SELFPAY | PROVIDERS: PCP Internal Medicine; Visit Provider Radiology Diagnostic Radiology | DX: M47.815 Spondylosis without myelopathy or radiculopathy, thoracolumbar region (principal); M70.61 Trochanteric bursitis, right hip | CPT/HCPCS: 72100 ==

== ENCOUNTER 2025-01-01 07:53 | Outpatient (REF) | payer OTHER, SELFPAY ==
--- OUTSIDE RECORDS SUMMARY | 2025-01-01 09:10 | XMS_ITS | Clinical Summary ---
Author Organization [facility] Address [address] [place] [address] Care Team Providers Care Reefer Engineer Name Role Phone Unavailable Primary Care Provider [...] Plan of Treatment Not on file Insurance [facility]
--- OUTSIDE RECORDS SUMMARY | 2025-01-01 09:10 | XMS_ITS | Clinical Summary ---
Author Organization [facility] Address [address] [place] [address] Care Team Providers Care Encoding Clerk Name Role Phone Caitlyn Lawton MD Primary Care Provider Medical History Medical History Date Comments Genital herpes 10/03/2007 DX:Genital herpe s Bipolar 1 disorder (CMS/HCC V24, CMS/HCC V28) 10/11/2013 DX:Bipolar 1 disorder ([facility]) Allergic rhinitis 11/23/2013 DX:Allergic rh initis COPD, mild (CMS/HCC V24, CMS/HCC V28) 09/15/2016 DX:COPD, mild ([facility]) Dermatophytosis of nail 01/29/2013 DX:[place] tophytosis of nail Dyspareunia in female 12/29/2017 DX:Dyspare unia in female 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 DX:Histo ry of positive PPD History of substance abuse ( CMS/HCC V24, CMS/HCC V28) 12/16/2011 DX:History of substance abus e ([facility]); COMMENT: 01/2018 Alcohol and cocaine in remission Insomnia 01/21/2014 DX:Insomnia Major depressive disorder wi th single episode, in full remission (CMS/HCC V24) 12/29/2017 DX:Major depr essive disorder with single episode, in full remission ([facility]) Perimenopausal vasomotor symptoms 12/29/2017 DX:Perimenopausal vasomotor symptoms [...] age to complete this topic Care Teams Encoding Clerk Relationship Specialty Start Date End Date Caitlyn Lawton MD PCP - General Internal Medicine 07/04/18
[2025-01-01 18:42] LABS: C Reactive Protein 0.11 mg/dL (< or = 0.50)
[2025-01-01 19:06] LABS: Erythrocyte Sedimentation Rate 11 MM/HR (0-20)
[2025-01-06 06:19] LABS: Aldolase 3.9 U/L (<=8.1)
== END 2025-01-01 07:54 | disposition home or self-care (01) ==
LOC: HO.HKASLDS 07:53
PROVIDERS: PCP Internal Medicine; Visit Provider Internal Medicine Rheumatology
DX: M79.89 Other specified soft tissue disorders (principal); M79.604 Pain in right leg; Z79.899 Other long term (current) drug therapy
CPT/HCPCS: 36415; 82085; 82550; 85652; 86140

== ENCOUNTER 2025-01-01 07:53 | Outpatient (AMB) | payer OTHER, SELFPAY ==
--- NOTE | 2025-01-01 07:56 | MHC.OFFVIS ---
Vital Signs 01/01/25 07:58 Height 5 ft 1 in Weight 140 lb BMI 26.4 BP 120/70 Blood Pressure Location Lt brachial Position Standing Pulse 99 Pulse Source Pulse Oximeter Pulse Oximetry (%) 99 Oxygen Delivery Method Room Air Intake Visit Reasons: back pain Intake Note: Pt presents today for Trochanteric bursitis, right hip.Pt states ever since shot she has been having numbness all the way down to her toes. Allergies No Known Allergies Allergy (Verified 01/01/25 07:59) HPI HPI back pain: Details: She continues to have right radiculopathy. She has less burning in her thigh and lateral hips. She has right buttocks pain that hernandez and radiates to groin region. She is using lidocaine patch at night, which is helping. There is no benefit on Celebrex and Tylenol combination. She is relying on her left leg to ambulate. Uses cane to walk. Right leg is swollen up to the top of her knee. Swelling started 2 days after my last visit with patient. Denies bowel or bladder incontinence. [facility] Medical History Screening for hyperlipidemia Low back pain Surgical History No pertinent past surgical history Family History Mother Alcoholic HTN (hypertension) Maternal Grandfather Cancer of unknown origin Other FH: mental illness Substance abuse Social History Housing: House Alcohol intake: former Comment: quit 20 years ago Patient Tobacco Use Status: Former Tobacco user Tobacco use type: Cigarette Cigarettes Per Day: 10 Years Smoked: 20 e-Cigarette/Vaping Use: Never Used Second Hand Smoke Exposure: No Substance Use Type: Former Substance User service: No Current occupational status: employed 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 Positive straight leg raising test right side. No tenderness of bilateral trochanteric bursa. Limited full lumbar flexion. Limited right hip flexion and external rotation due to pain. Left leg range of motion is normal. She has increase soft tissue swelling of right buttocks, right thigh up to the level of right suprapatellar region. No tenderness of thigh. Results Reviewed Results Reviewed: x-ray L spine reviewed. Assessment & Plan Assessment & Plan (1) Trochanteric bursitis, right hip: Comment: Resolved with trochanteric bursa cortisone injection Code(s): M70.61 - Trochanteric bursitis, right hip Category: Medical Plan: Monitor clinically (2) Lumbar radiculopathy, chronic: Comment: Progressive with limited function of right leg. She has developed right buttocks and thigh muscle swelling. Failed ibuprofen, Celebrex, acetaminophen and tramadol. We discussed having patient admitted for workup but I informed her the timeframe of getting an MRI would be at least 1-2 days inpatient. Code(s): M54.16 - Radiculopathy, lumbar region Category: Medical Plan: MRI L-spine stat to evaluate for nerve impingement, which will help target L-spine cortisone injection Pain management referral for spinal cortisone injection EMG right leg ordered Labs: Inflammatory markers, CK and aldolase ordered Stopped Celebrex Start nabumetone 750 mg twice a day Continue acetaminophen 1-2 tablets 650 mg every 8 hours Start gabapentin 300 mg t.i.d. Continue using lidocaine patch to back Continue applying ice to back. Heat was ineffective. Return to clinic in 1-2 months (3) Swelling of skeletal muscle: Code(s): M79.89 - Other specified soft tissue disorders Category: Medical Plan: See above (4) Right leg pain: Code(s): M79.604 - Pain in right leg Category: Medical Plan: See above Orders: Orders NE electromyogram (EMG) Today M54.16 - Radiculopathy, lumbar region NE nerve conduction velocity Today M54.16 - Radiculopathy, lumbar region Creatine Kinase Total Today M79.604 - Pain in right leg, M79.89 - Other specified soft tissue disorders Aldolase Today M79.604 - Pain in right leg, M79.89 - Other specified soft tissue disorders Erythrocyte Sedimentation Rate Today M79.604 - Pain in right leg, M79.89 - Other specified soft tissue disorders, Z79.899 - Other termite control servicer (current) drug therapy C Reactive Protein Today M79.604 - Pain in right leg, M79.89 - Other specified soft tissue disorders, Z79.899 - Other termite control servicer (current) drug therapy Referrals Pain Management Referral M47.816 - Spondylosis without myelopathy or radiculopathy, lumbar region, M54.16 - Radiculopathy, lumbar region Medications: New nabumetone Replace celecoxib. Take with food. Ok to take with acetaminophen. 750 mg PO BID 60 tabs 2RF gabapentin 300 mg PO TID 90 caps 2RF Discontinued celecoxib Take with food. Discontinue ibuprofen. Discontinued Reason: Doctor's Order 200 mg PO BID 60 caps 2RF Coding Level of Care Code Est Pt Level 4 (91967) Complex EM visit Add On G2211 Diagnoses Trochanteric bursitis, right hip M70.61 Lumbar radiculopathy, chronic M54.16 Swelling of skeletal muscle M79.89 Right leg pain M79.604
--- OUTSIDE RECORDS SUMMARY | 2025-01-01 07:57 | XMS_ITS | Clinical Summary ---
Author Organization [facility] Address [address] [place] [address] Care Team Providers Care Electronic Publisher Name Role Phone Unavailable Primary Care Provider [...] Plan of Treatment Not on file Insurance [facility]
--- OUTSIDE RECORDS SUMMARY | 2025-01-01 07:57 | XMS_ITS | Patient Health Record ---
Author Organization [facility] Address [address] [place] [address] Care Team Providers Care Social Professionals Name Role Phone RAJAT MOULTON NP Primary Care Provider Unavail able SAAD PETTIT Unavailable [phone] Allergies No Known Allergies Reason For Referral [...] Status Risk Notes Problem Postmenopausal atrophic vaginitis (61145830) Postmenopausal atrophic vaginitis (N95.2) Active confirmed Problem Herpes simplex viral infection (28402406) Herpesviral infection, unspecified (B00.9) Active confirmed Plan Of Treatment Pending Test Test Name Order Date Urinalysis 09/07/2019 MM Digital Screening Mammogram 3D 2020 MM Digital Screening Mammogram 3D 2021 MM Digital Screening Mammogram 3D 2019 Insurance Providers Payer Name Payer Address Payer Phone Subscriber Number Group Number Insured Name Patient Relationship to Insured Coverage Start Date Coverage End Date [facility] [address] [place] [address] [id number] RHEA REEVES Self - patient is the insured Medical (General) History Medical History History ICD Code Headache R51 Herpesviral infection, unspecified B00.9 Surgical History Surgery Date(Month/Year) x 3 Hospitalization History Reason Date(Month/Year) childbirth
--- OUTSIDE RECORDS SUMMARY | 2025-01-01 07:57 | XMS_ITS | Clinical Summary ---
Author Organization [facility] Address [address] [place] [address] Care Team Providers Care Public Health Dietitian Name Role Phone Caitlyn Lawton MD Primary Care Provider Medical History Medical History Date Comments Genital herpes 10/03/2007 DX:Genital herpe s Bipolar 1 disorder (CMS/HCC V24, CMS/HCC V28) 10/11/2013 DX:Bipolar 1 disorder ([facility]) Allergic rhinitis 11/23/2013 DX:Allergic rh initis COPD, mild (CMS/HCC V24, CMS/HCC V28) 09/15/2016 DX:COPD, mild ([facility]) Dermatophytosis of nail 01/29/2013 DX:[place] tophytosis of nail Dyspareunia in female 12/29/2017 DX:Dyspare unia in female 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 DX:Histo ry of positive PPD History of substance abuse ( CMS/HCC V24, CMS/HCC V28) 12/16/2011 DX:History of substance abus e ([facility]); COMMENT: 01/2018 Alcohol and cocaine in remission Insomnia 01/21/2014 DX:Insomnia Major depressive disorder wi th single episode, in full remission (CMS/HCC V24) 12/29/2017 DX:Major depr essive disorder with single episode, in full remission ([facility]) Perimenopausal vasomotor symptoms 12/29/2017 DX:Perimenopausal vasomotor symptoms [...] age to complete this topic Care Teams Public Health Dietitian Relationship Specialty Start Date End Date Caitlyn Lawton MD PCP - General Internal Medicine 07/04/18
[2025-01-01 07:58] VITALS: BP 120/70; PULSE 99; O2SAT 99; BMI 26.4
== END 2025-01-01 08:34 | disposition home or self-care (01) ==
LOC: HO.RHES 07:54
PROVIDERS: PCP Internal Medicine; Visit Provider Internal Medicine Rheumatology
DX: M70.61 Trochanteric bursitis, right hip (principal); M54.16 Radiculopathy, lumbar region; M79.89 Other specified soft tissue disorders; M79.604 Pain in right leg
CPT/HCPCS: 99214

== ENCOUNTER → 2025-01-03 19:03 | Outpatient (BNV) | payer OTHER, SELFPAY | PROVIDERS: PCP Internal Medicine; Visit Provider Radiology Diagnostic Radiology | DX: M47.816 Spondylosis without myelopathy or radiculopathy, lumbar region (principal) | CPT/HCPCS: 72148 ==

== ENCOUNTER 2025-01-03 19:04 | Outpatient (REF) | payer OTHER, SELFPAY ==
--- NOTE | ~2025-01-03 | MR_ITS ---
CLINICAL HISTORY: M54.16 - Radiculopathy, lumbar region Acute lower back pain localized to paraspinal region with right radiculopathy, ?facet arthropathy, nerve impingement. Pain out of proportion to e xam. Progressing. Reduced function. MR lumbar spine without gadolinium Comparison: None Findings: Stranding of the lumbar lordosis. Minimal marrow edema along the superior endplate of L4 likely related to type 1 Modic endplate changes, degenerative. Conus medullaris within normal limits. Paraspinal musculature is unremarkable. Multilevel facet arthropathy with ligamentum flavum buckling. Mild disc bulge at L2-L3. No high-grade spinal canal narrowing or foraminal stenoses. Circumferential disc bulge with superimposed left subarticular disc extrusion at L3-L4 with superior migration and compression of the left L4 traversing nerve roots. Moderate to severe spinal canal narrowing. Severe right and moderate left bilateral foraminal stenoses. Mild disc bulge at L4-L5. Moderate right and moderate to severe left bilateral foraminal stenoses. No high-grade spinal canal narrowing. Mild disc bulge at L5-S1. Mild left foraminal stenoses. Right perineural cyst. IMPRESSION: Multilevel lumbar spondylosis, pronounced at L3-L4, please see above. This document has been electronically signed by: Zach Tarango MD on 01/03/2025 19:55:55
== END 2025-01-03 19:05 | disposition home or self-care (01) ==
LOC: HO.MRI 19:04
PROVIDERS: PCP Internal Medicine; Visit Provider Internal Medicine Rheumatology
DX: M54.16 Radiculopathy, lumbar region (principal)
CPT/HCPCS: 72148

== ENCOUNTER 2025-01-21 09:00 | Outpatient (AMB) | payer OTHER, SELFPAY ==
--- NOTE | 2025-01-21 09:16 | MHC.OFFVIS ---
Vital Signs 01/21/25 09:18 Height 5 ft 1 in Weight 133 lb BMI 25.1 BP 184/90 H Blood Pressure Location Lt brachial Position Sitting Respiration 16 Pulse 95 Pulse Source Pulse Oximeter Intake Visit Reasons: Radiculopathy, lumbar region/cortisone inj eval Maternity Floor Supervisor Required: No Allergies No Known Allergies Allergy (Verified 01/21/25 09:20) Medication List - Last Reconciled 01/21/25 by Joann Rodriguez LPN gabapentin 600 mg (2 x 300 mg) PO TID loratadine (Allergy Relief (loratadine)) 10 mg PO DAILY nabumetone 750 mg PO BID oxycodone 5 mg PO Q6H PRN 28 days HPI HPI Radiculopathy, lumbar region/cortisone inj eval: Details: History of Present Illness The patient is a 59-year-old female presenting with chronic right hip and leg pain of insidious onset approximately two months ago. The pain, initially of unknown origin, became exacerbated following an episode of gardening. It predominantly affects her right hip, radiating down her leg while sparing the left side, and is accompanied by numbness and burning sensations. The patient reports her pain to be severe and constant, rating it as 10 out of 10, particularly when sitting, necessitating the use of a cushion. She finds standing or lying down to offer some relief. Previous treatments included oxycodone and gabapentin, but they have not provided adequate analgesia. An injection suspected to treat bursitis was also ineffective. MRI findings indicate multilevel degenerative disc disease and an L3-L4 disc extrusion with nerve root compression. Given these findings and her extreme discomfort, she is unable to participate in physical therapy, citing intolerable pain exacerbation. Pain Description - Onset: Approximately two months ago, insidious onset. - Quality: Describes as severe, with numbness and burning sensations. - Location: Primarily the right hip with radiation down the right leg. - Radiation: Pain radiates down the right leg, sparing the left. - Exacerbating Factors: Sitting, driving (more severe after 20-30 minutes). - Alleviating Factors: Standing, lying down, using a cushion when sitting. - Interference: Significant impact on sitting, driving, and occupational duties. Physical Exam - Musculoskeletal- Positive straight leg raise on the right leg. - Neurologic- Reflexes not detailed, but reported shooting pain with leg raise on the right side. Results - MRI Lumbar Spine: Multilevel degenerative disc disease. Disc extrusion pronounced at L3-L4. Superior migration and compression of L4 traversing nerve roots. Pain Management - Affect: Discomfort impacting daily activities and mood significantly. - Analgesia: Current use of oxycodone and gabapentin, patient reports 10/10 pain level. - Adverse Effects: No side effects reported, but current regimen ineffective. - Activities of Daily Living: Pain severely impacts sitting and driving. - Aberrant Drug Related Behaviors: No aberrant behaviors reported, patient compliant with prescribed regimen. [facility] Medical History Screening for hyperlipidemia Low back pain Surgical History No pertinent past surgical history Family History Mother Alcoholic HTN (hypertension) Maternal Grandfather Cancer of unknown origin Other FH: mental illness Substance abuse Social History Housing: House Alcohol intake: former Comment: quit 20 years ago Patient Tobacco Use Status: Former Tobacco user Tobacco use type: Cigarette Cigarettes Per Day: 10 Years Smoked: 20 e-Cigarette/Vaping Use: Never Used Second Hand Smoke Exposure: No Substance Use Type: Former Substance User service: No Current occupational status: employed 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 She has developed right buttocks and thigh muscle swelling. Failed ibuprofen, Celebrex, acetaminophen and tramadol. Code(s): M54.16 - Radiculopathy, lumbar region Category: Medical Plan Plan - Schedule and obtain insurance authorization for right L3 transforaminal epidural steroid injection to manage disc herniation related pain. Expedite the approval process due to the patient's inability to participate in physical therapy. - Continue current medication regimen (oxycodone and gabapentin) until injection is administered. - Introduce HEP/light stretching exercises tailored to lumbar relief. - Discuss potential surgical intervention should conservative measures fail to alleviate symptoms. - Conduct follow-up assessment post-injection. Patient was informed and verbally consented to the use of an ambient scribe for clinic note documentation during this visit. Discussion Notes During the consultation, the patient and I discussed the diagnosis of L3-L4 disc herniation with associated nerve root compression. I explained the proposed treatment plan, including the benefits of a transforaminal epidural steroid injection, the risks involved, especially the potential for temporary increase in pain or discomfort, and the process for insurance pre-approval. I informed her of the procedure's intention to relieve pain sufficiently to resume physical therapy, emphasizing its stepwise approach to address her chronic pain effectively. We also discussed surgical decompression as a future possibility should conservative measures prove insufficient. She understood and agreed with the outlined plan and the contingencies involved. Patient Instructions - Continue prescribed oxycodone and gabapentin until further notice. - Try gentle stretching exercises to help alleviate back pressure. Avoid positions that worsen pain such as touching toes. - Be prepared for the procedural appointment, we will call once insurance is authorized. - Report any sudden changes or increase in pain immediately. - Follow-up as instructed post-injection for reassessment of pain management strategy. Coding Level of Care Code New Pt Level 4 (10005) Diagnoses Lumbar radiculopathy, chronic M54.16
[2025-01-21 09:18] VITALS: BP 184/90; PULSE 95; RESP 16; BMI 25.1
--- OUTSIDE RECORDS SUMMARY | 2025-01-21 09:19 | XMS_ITS | Patient Health Record ---
Author Organization [facility] Address [address] [place] [address] Care Team Providers Care Scarrer Name Role Phone RAJAT MOULTON NP Primary Care Provider Unavail able SAAD PETTIT Unavailable [phone] Allergies No Known Allergies Reason For Referral [...] Status Risk Notes Problem Postmenopausal atrophic vaginitis (98760986) Postmenopausal atrophic vaginitis (N95.2) Active confirmed Problem Herpes simplex viral infection (31797913) Herpesviral infection, unspecified (B00.9) Active confirmed Plan Of Treatment Pending Test Test Name Order Date Urinalysis 09/07/2019 MM Digital Screening Mammogram 3D 2020 MM Digital Screening Mammogram 3D 2021 MM Digital Screening Mammogram 3D 2019 Insurance Providers Payer Name Payer Address Payer Phone Subscriber Number Group Number Insured Name Patient Relationship to Insured Coverage Start Date Coverage End Date [facility] [address] [place] [address] [phone] [id number] RHEA REEVES Self - patient is the insured Medical (General) History Medical History History ICD Code Headache R51 Herpesviral infection, unspecified B00.9 Surgical History Surgery Date(Month/Year) x 3 Hospitalization History Reason Date(Month/Year) childbirth
== END 2025-01-21 09:58 | disposition home or self-care (01) ==
LOC: HO.PMC 09:01
PROVIDERS: PCP Internal Medicine; Referring Provider Internal Medicine Rheumatology; Visit Provider Internal Medicine
DX: M54.16 Radiculopathy, lumbar region (principal)
CPT/HCPCS: 99204

== ENCOUNTER → 2025-01-21 09:00 | Outpatient (BNVA) | payer OTHER, SELFPAY | PROVIDERS: PCP Internal Medicine; Referring Provider Internal Medicine Rheumatology; Visit Provider Internal Medicine ==

== ENCOUNTER 2025-03-11 15:17 | Outpatient (AMB) | payer OTHER, SELFPAY ==
--- NOTE | 2025-03-11 15:07 | MHC.PC.OV ---
Intake Visit Reasons: pain Allergies No Known Allergies Allergy (Verified 01/21/25 09:20) Tobacco use date assessed: 09/10/24 Dental Screening Dental Screen Date: 09/10/24 HPI HPI Comments History of Present Illness Details This is a 59 year old female with past medical history of allergies, back/pelvic pain, frequent UTI, presenting for follow up MSK: On ibuprofen. Started having significant pain in the right groin that travels down anterior, deep right thigh. Had chronic right low back pain. Saw pain management. Had imaging. Noted low back disease. Offereder injection ultimately she declined. Saw [facility] for second opinion, thought to be likely more consistent with piriformis syndrome. Has been trying to limit oxycodone, has not taken in past week. Doing fairly well on her ibuprofen and gabapentin Colonoscopy: Had colonoscopy at [facility] ~ 50 ROS see HPI PHYSICAL EXAM: Telehealth [facility] Medical History Screening for hyperlipidemia Low back pain Surgical History No pertinent past surgical history Family History Mother Alcoholic HTN (hypertension) Maternal Grandfather Cancer of unknown origin Other FH: mental illness Substance abuse Social History Housing: House Alcohol intake: former Comment: quit 20 years ago Patient Tobacco Use Status: Former Tobacco user Tobacco use type: Cigarette Cigarettes Per Day: 10 Years Smoked: 20 e-Cigarette/Vaping Use: Never Used Second Hand Smoke Exposure: No Substance Use Type: Former Substance User service: No Current occupational status: employed 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 1. Little interest or pleasure in doing things: not at all 2. Feeling down, depressed, or hopeless: not at all 3. Trouble falling or staying asleep, or sleeping too much: several days 4. Feeling tired or having little energy: several days 5. Poor appetite or overeating: nearly every day 6. Feeling bad about yourself - or that you are a failure or have let yourself or your family down: not at all 7. Trouble concentrating on things, such as reading the newspaper or watching television: not at all 8. Moving or speaking so slowly that other people could have noticed. Or the opposite - being so fidgety or restless that you have been moving around a lot more than usual: not at all 9. Thoughts that you would be better off or of hurting yourself in some way: not at all Total score: 5 Depression Screening Interpretation: Positive Depression Screening Follow-up: Declines treatment Depression Screening Done: Yes 07500 - PHQ-9 Billing: Yes Source: Developed by Drs. Fabio Harris, Pascale Gan, Michael Brandt and colleagues, with an educational aria from [employer]. Thrive Questionnaire Date Thrive assessed: 08/24/24 I am a: Patient What is your living situation today?: I have a steady place to live Within the past 12 months, did the food you bought not last and you didn't have the money to get more?: I choose not to answer this question Within the past 12 months, did you worry whether your food would run out before you got money to buy more?: I choose not to answer this question Do you have trouble paying for medicines?: No Do you have trouble getting transportation to medical appointments?: No Do you have trouble paying your heating and electricity bill?: No Do you have trouble taking care of your child, family member or friend?: No Do you have trouble with day-to-day activities such as bathing, preparing meals, shopping, managing finances, etc.?: No Are you currently unemployed and looking for a job?: No Are you interested in more education?: No Please select the resources that you would like help with: None Currently or been in a relationship where the following occur: No concerns reported THRIVE Score: 0 Physical exam (Primary Care) Tobacco/Smoking Status: Tobacco use Status Tobacco use date assessed 09/10/24 03/11/25 15:08 Patient Tobacco Use Status Former Tobacco user 03/11/25 15:08 Tobacco use type Cigarette 03/11/25 15:08 e-Cigarette/Vaping Use Never Used 03/11/25 15:08 PHQ-9: PHQ-9 Score PHQ-9: Total score 5 03/11/25 20:49 Depression Screening Interpretation: Positive Depression Screening Follow-up: Declines treatment Thrive Assessment: Date of Thrive Assessment Date Thrive assessed 08/24/24 03/11/25 15:08 Currently or been in a relationship where the following occur: No concerns reported Telehealth Telehealth Telehealth Platform: [email or web address] Location of provider rendering services: practice address Location of patient: address on file Patient Identification confirmed using: Name, : Yes Telehealth method: voice only Patient verbally consented to treatment: Yes Patient verbally consented to billing insurance company: Yes Patient informed of any privacy concerns related to visit: Yes Minutes spent on Phone/Video with Pt.: 25 Coding Level of Care Code Tele Est Pt Level 3 (26274) Diagnoses Right inguinal pain R10.31 Laterality: right Piriformis syndrome of right side G57.01 Laterality: right Additional Codes PHQ-9 - 95401 - PHQ-9 Billing: Yes ([id number]) Assessment & Plan Assessment & Plan (1) Groin pain: Code(s): R10.30 - Lower abdominal pain, unspecified Category: Medical Qualifiers: Laterality: right Qualified Code(s): R10.31 - Right lower quadrant pain (2) Piriformis syndrome: Code(s): G57.00 - Lesion of sciatic nerve, unspecified lower limb Category: Medical Qualifiers: Laterality: right Qualified Code(s): G57.01 - Lesion of sciatic nerve, right lower limb Plan Interval lessening severity of right low back, piriformis pain Continue current medications. Recommend PT aimed at piriformis issue-ordered. Ibuprofen refilled Orders: Orders PT Evaluation and Treatment Today G57.00 - Lesion of sciatic nerve, unspecified lower limb Medications: New ibuprofen 600 mg PO QID PRN 120 tabs 3RF pain
--- OUTSIDE RECORDS SUMMARY | 2025-03-11 15:38 | XMS_ITS | Clinical Summary ---
Author Organization [facility] Address [address] [place] [address] Care Team Providers Care Master Black Belt Name Role Phone Unavailable Primary Care Provider [...] Plan of Treatment Not on file Insurance [facility]
--- OUTSIDE RECORDS SUMMARY | 2025-03-11 15:38 | XMS_ITS | Patient Health Record ---
Author Organization [email or web address] Address [address] [place] [address] Care Team Providers Care Electronic Technologist Name Role Phone RAJAT MOULTON NP Primary Care Provider Unavail able SAAD PETTIT Unavailable [phone] Allergies No Known Allergies Reason For Referral No Information Medications Medication SIG (Take, Route, Fr equency, Duration) Notes Start Date End Date Status Estradiol 0.1 MG/GM as directed (1 gram) Vaginal Once a day; Duration: 90 days 09/07/2019 Not-Taking Valtrex 500 MG 1 tablet Orally Once a day; Duration: 90 days Active Claritin 10 MG 1 tablet Orally Once a day; Duration: 30 day(s) Active Social History Tobacco Use: [...] Status Risk Notes Problem Postmenopausal atrophic vaginitis (47049780) Postmenopausal atrophic vaginitis (N95.2) Active confirmed Problem Herpes simplex viral infection (20045973) Herpesviral infection, unspecified (B00.9) Active confirmed Plan Of Treatment Pending Test Test Name Order Date Urinalysis 09/07/2019 MM Digital Screening Mammogram 3D 2020 MM Digital Screening Mammogram 3D 2021 MM Digital Screening Mammogram 3D 2019 Insurance Providers Payer Name Payer Address Payer Phone Subscriber Number Group Number Insured Name Patient Relationship to Insured Coverage Start Date Coverage End Date [facility] [address] [place] [address] [phone] [id number] RHEA REEVES Self - patient is the insured Medical (General) History Medical History History ICD Code Headache R51 Herpesviral infection, unspecified B00.9 Surgical History Surgery Date(Month/Year) x 3 Hospitalization History Reason Date(Month/Year) childbirth
--- OUTSIDE RECORDS SUMMARY | 2025-03-11 15:38 | XMS_ITS | Clinical Summary ---
Author Organization [address] [facility] Address [address] [place] [address] Phone Care Team Providers Care Motor Patrol Operator Name Role Phone Christine Venegas MD Primary Care Provider [phone] Allergies No known active allergies Medications acetaminophen (TYLENOL 8 HOUR) 650 mg 8 hr tablet TAKE 1 TO 2 TABLETS BY MOUTH EVERY 8 HOURS NEEDED FOR PAIN DO NOT TAKE MORE THAN 6 TABLETS DAILY. OK TO TAKE TYLENOL WITH CELECOXIB 5 Active bimatoprost (LATISSE) 0.03 % ophthalmic solution APPLY TO EYELASHES ONCE DAILY 5 Active gabapentin (NEURONTIN) 800 mg tablet Take 1 tablet (800 mg total) by mouth. 5 Active lidocaine (LIDODERM) 5 % patch APPLY ONE PATCH TOPICALLY TO CLEAN, DRY SKIN. LEAVE ON FOR 12 HOURS THEN REMOVE. MUST WAIT AT LEAST 12 HOURS BEFORE APPLYING PATCH(ES) AGAIN. 5 Active loratadine (CLARITIN) 10 mg tablet Take 1 tablet (10 mg total) by mouth 1 (one) time each day. 5 Active nabumetone (RELAFEN) 750 mg tablet TAKE 1 TABLET BY MOUTH TWICE DAILY WITH FOOD OK TO TAKE WITH ACETAMINOPHEN REPLACES CELECOXIB 5 Active oxyCODONE (ROXICODONE) 5 mg immediate release tablet Take 1 tablet (5 mg total) by mouth every 6 (six) hours if needed. for pain Max Daily Amount: 20 mg Active Active Problems Problem Noted Date Diagnosed Date Piriformis syndrome of right side 02/19/2025 Assessment & Plan (02/19/2025 2:51 PM EDT): I reviewed the imaging findings in detail with Ms. Osborne using a spine model to describe the degenerative disc disease at L4-5 as well as the left-sided disc herniation at L3-4. There is an underlying bilateral disc bulge affecting both foramina probably right worse than left which I see is the only potential source for right buttock and groin pain coming from the spine. She has no back pain and I would not consider surgery at this time. The original thought was that this was coming from her hip but she had no response to the trochanteric injection. Given that her symptoms started after gardening with a significant amount of twisting while she was sitting down on her buttocks, the reproducible pain in the deep medial gluteus and the more diffuse pain down her leg, I believe that this may be due to piriformis syndrome. She had not tried physical therapy when previously recommended because of her pain but I assured her that PT will also address her pain prior to starting the exercise program. She has agreed to try physical therapy and will likely postpone her injections, I do not see the need to repeat the right hip injection since that did not help. If one considers a lumbar injection a right L3 TFE would seem the most suitable. The left-sided disc herniation at L3-4 is not causing her right buttock and groin pain. She will follow-up with me in a couple of months to reassess the situation. Encounters Date Type Department Care Team Description 02/19/2025 1:15 PM EDT Consult Neurosurgery [place] [address] [place] [address] Kelly Villa MD Piriformis syndrome of right side (Primary Dx) from Last 3 Months Surgical History Surgery Date Site/Laterality Comments SECTION Medical History Medical History Date Comments Genital herpes 10/03/2007 DX:Genital herpe s Bipolar 1 disorder (CMS/HCC V24, CMS/HCC V28) 10/11/2013 DX:Bipolar 1 disorder (HCC) Allergic rhinitis 11/23/2013 DX:Allergic rh initis COPD, mild (CMS/HCC V24, [facility] V28) 09/15/2016 DX:COPD, mild ([facility]) Dermatophytosis of nail 01/29/2013 DX:[facility] tophytosis of nail Dyspareunia in female 12/29/2017 DX:Dyspare unia in female 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 DX:Histo ry of positive PPD History of substance abuse ( [facility] V24, [facility] V28) 12/16/2011 DX:History of substance abus e ([facility]); COMMENT: 01/2018 Alcohol and cocaine in remission Insomnia 01/21/2014 DX:Insomnia Major depressive disorder wi th single episode, in full remission ([facility] V24) 12/29/2017 DX:Major depr essive disorder with single episode, in full remission ([facility]) Perimenopausal vasomotor symptoms 12/29/2017 DX:Perimenopausal vasomotor symptoms Secondary amenorrhea 12/29/2017 DX:Secondar y amenorrhea Depression Family History Medical History Relation Name Comments [...] Sexual Orientation Not on file Obstetrics History Last Filed Vital Signs Vital Sign Reading Time Taken Comments Blood Pressure - - Pulse - - Temperature - - Respiratory Rate - - Oxygen Saturation - - Inhaled Oxygen Concentration - - Weight 65.8 kg (145 lb) 02/19/2025 1:04 PM EDT Height 154.9 cm (5' 1 ) 02/19/2025 1:04 PM EDT Body Mass Index 27.4 02/19/2025 1:04 PM EDT Plan of Treatment Health Maintenance Due Date Last Done Comments Breast Cancer Screening 1966 Pneumococcal Vaccine: 50+ Years (1 of 2 - PCV) 1985 Cervical Cancer Screening: Pap Smear 1987 Hepatitis B Vaccines (2 of 3 - 19+ 3-dose series) 04/30/2004 04/02/2004 Zoster Vaccines (1 of 2) 2016 Colorectal Cancer Screening: Colonoscopy 07/18/2022 HIV Screening 07/18/2022 Hepatitis C Screening 07/18/2022 Social Influencers of Health Screening 07/18/2022 DTaP,Tdap,and Td Vaccines (2 - Td or Tdap) 01/15/2023 01/15/2013 COVID-19 Vaccine (4 - season) 2024 07/01/2021, 09/19/2020, 08/22/2020 Depression Screening 08/15/2024 Influenza Vaccine (#1) 2025 , 05/29/2020, 05/30/2019, Additional history exists HIB Vaccines Aged Out No longer eligi [...] to complete this topic RSV Immunization Patients Under 20 months Aged Out No longer eligible based on patient's age to complete this topic Varicella Vaccines Aged Out No longer eligible based on patient's age to complete this topic Procedures Procedure Name Priority Date/Time Associated Diagnosis Comments EXTERNAL MRI REPORT Routine 01/03/2025 5:14 PM EDT EXTERNAL XRAY REPORT Routine 12/25/2024 5:15 PM EDT from Last 3 Months Results * External MRI Report (01/03/2025 5:14 PM EDT) Anatomical Region Laterality Modality Magnetic Resonan ce us Historical Provider MD RAYMUNDO MRI PROCEDURES Final Result * External Xray Report (12/25/2024 5:15 PM EDT) Anatomical Region Laterality Modality Radiographic Chichi ging us Historical Provider MD RAYMUNDO XR PROCEDURES Final R esult from Last [address] [place] [address] Care Teams Motor Patrol Operator Relationship Specialty Start Date End Date Christine Venegas MD [address] [place] [address] PCP - General Internal Medicine 01/31/25
== END 2025-03-11 15:33 | disposition home or self-care (01) ==
LOC: HO.HMCFM 15:17
PROVIDERS: PCP Internal Medicine; Visit Provider Internal Medicine
DX: R10.31 Right lower quadrant pain (principal); G57.01 Lesion of sciatic nerve, right lower limb

== ENCOUNTER → 2025-03-11 15:17 | Outpatient (BNVA) | payer OTHER, SELFPAY | PROVIDERS: PCP Internal Medicine; Visit Provider Internal Medicine | DX: Z13.31 Encounter for screening for depression (principal); R10.31 Right lower quadrant pain; G57.01 Lesion of sciatic nerve, right lower limb | CPT/HCPCS: 96127 ==

== ENCOUNTER 2025-03-21 08:18 | Outpatient (REF) | payer OTHER, SELFPAY ==
[2025-03-21 13:20] LABS: MANUAL DIFF FLAG NO
[2025-03-21 13:27] LABS: Hematocrit 37.4 % (37.0-47.0); Hemoglobin 12.8 g/dl (12.0-16.0); Imm Gran Abs Auto 0.02 X10*3/uL (0.00-0.03); Imm Gran Pct Auto 0.3 % (0.0-0.4); Lymphocytes Absolute Auto 2.8 X10*3/uL (1.2-4.9); Mean Corpuscular HGB Conc 34.2 g/dl (31.0-35.0); Mean Corpuscular Hemoglobin 30.2 pg (27.0-33.0); Mean Corpuscular Volume 88.2 fL (80.0-98.0); NRBC Abs Auto 0.000 X10*3/uL (0.0-0.012); NRBC Pct Auto 0.0 /100WBC (0.0-0.2); Platelet Count 322 X10*3/uL (160-400); Red Blood Count 4.24 X10*6/uL (4.20-5.50); White Blood Count 7.1 X10*3/uL (4.8-10.8)
[2025-03-21 13:52] LABS: Alanine Aminotransferase 24 U/L (0-31); Aspartate Amino Transferase 21 U/L (5-31); Estimated Glomerular Filt Rate > 60
== END 2025-03-21 08:19 | disposition home or self-care (01) ==
LOC: HO.HKASLDS 08:18
PROVIDERS: PCP Internal Medicine; Visit Provider Internal Medicine Rheumatology
DX: M70.61 Trochanteric bursitis, right hip (principal); M54.16 Radiculopathy, lumbar region; M79.89 Other specified soft tissue disorders; M79.604 Pain in right leg; G57.01 Lesion of sciatic nerve, right lower limb; Z79.1 Long term (current) use of non-steroidal anti-inflammatories (NSAID)
CPT/HCPCS: 20610; 36415; 82565; 84450; 84460; 85025; J2003; J3300

== ENCOUNTER 2025-03-21 08:18 | Outpatient (AMB) | payer OTHER, SELFPAY ==
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
--- OUTSIDE RECORDS SUMMARY | 2025-03-21 08:24 | XMS_ITS | Patient Health Record ---
Author Organization [facility] Address [address] [place] [address] Care Team Providers Care Night Patrol Inspector Name Role Phone RAJAT MOULTON NP Primary Care Provider Unavail able SAAD PETTIT Unavailable [phone] Allergies No Known Allergies Reason For Referral [...] Status Risk Notes Problem Postmenopausal atrophic vaginitis (21286853) Postmenopausal atrophic vaginitis (N95.2) Active confirmed Problem Herpes simplex viral infection (69960413) Herpesviral infection, unspecified (B00.9) Active confirmed Plan Of Treatment Pending Test Test Name Order Date Urinalysis 09/07/2019 MM Digital Screening Mammogram 3D 2020 MM Digital Screening Mammogram 3D 2021 MM Digital Screening Mammogram 3D 2019 Insurance Providers Payer Name Payer Address Payer Phone Subscriber Number Group Number Insured Name Patient Relationship to Insured Coverage Start Date Coverage End Date [facility] [address] [place] [address] [phone] [id number] 01 RHEA REEVES Self - patient is the insured Medical (General) History Medical History History ICD Code Headache R51 Herpesviral infection, unspecified B00.9 Surgical History Surgery Date(Month/Year) x 3 Hospitalization History Reason Date(Month/Year) childbirth
--- OUTSIDE RECORDS SUMMARY | 2025-03-21 08:24 | XMS_ITS | Clinical Summary ---
Author Organization 175 [facility] Address [address] [place] [address] Phone Care Team Providers Care Deicer Repairer Pneumatic Name Role Phone Christine Venegas MD Primary Care Provider [phone] Allergies No known active allergies Medications acetaminophen [...] Description 02/19/2025 1:15 PM EDT Consult Neurosurgery [place] [address] [place] [address] Kelly Villa MD Piriformis syndrome of right side (Primary Dx) from Last 3 Months Surgical History Surgery Date Site/Laterality Comments SECTION Medical History Medical History Date Comments Genital herpes 10/03/2007 DX:Genital herpe s Bipolar 1 disorder (CMS/HCC V24, CMS/HCC V28) 10/11/2013 DX:Bipolar 1 disorder (HCC) Allergic rhinitis 11/23/2013 DX:Allergic rh initis COPD, mild (CMS/HCC V24, [facility] V28) 09/15/2016 DX:COPD, mild ([facility]) Dermatophytosis of nail 01/29/2013 DX:[place] tophytosis of nail Dyspareunia in female 12/29/2017 DX:Dyspare unia in female 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 DX:Histo ry of positive PPD History of substance abuse ( [facility] V24, [facility] V28) 12/16/2011 DX:History of substance abus e ([facility]); COMMENT: 01/2018 Alcohol and cocaine in remission Insomnia 01/21/2014 DX:Insomnia Major depressive disorder wi th single episode, in full remission ([facility] V24) 12/29/2017 DX:Major depr essive disorder with single episode, in full remission ([facility]) Perimenopausal vasomotor symptoms 12/29/2017 DX:Perimenopausal [...] R esult from Last 3 Months Insurance [facility] Care Teams Deicer Repairer Pneumatic Relationship Specialty Start Date End Date Christine Venegas MD PCP - General Internal Medicine 01/31/25
--- OUTSIDE RECORDS SUMMARY | 2025-03-21 08:24 | XMS_ITS | Clinical Summary ---
Author Organization [facility] Address [address] [place] [address] Care Team Providers Care Logistics Operations Manager Name Role Phone Unavailable Primary Care Provider [...] Plan of Treatment Not on file Insurance [facility] DENTAL [facility]
[2025-03-21 08:26] VITALS: BP 130/80; PULSE 80; O2SAT 99; BMI 25.5
== END 2025-03-21 08:50 | disposition home or self-care (01) ==
LOC: HO.RHES 08:19
PROVIDERS: PCP Internal Medicine; Visit Provider Internal Medicine Rheumatology
DX: M70.61 Trochanteric bursitis, right hip (principal); M54.16 Radiculopathy, lumbar region; M79.89 Other specified soft tissue disorders; M79.604 Pain in right leg; G57.01 Lesion of sciatic nerve, right lower limb; Z79.1 Long term (current) use of non-steroidal anti-inflammatories (NSAID)
CPT/HCPCS: 20610; 99214

== ENCOUNTER 2025-04-17 14:53 | Outpatient (AMB) | payer OTHER, SELFPAY ==
--- NOTE | 2025-04-17 15:18 | MHC.OFFVIS ---
Vital Signs 04/17/25 15:25 Height 5 ft 1 in Weight 136 lb 10.986 oz BMI 25.8 BP 139/85 Blood Pressure Location Lt brachial Position Sitting Pulse 73 Intake Visit Reasons: Changes in bowel functions Intake Note: Nila presents in the office as a new patient changes in bowel functions. CC: She states that her symptoms have gotten a lot better. she had diarrhea 3-4 months straight. She started eating cheese more to bind her up. Wine Cellar Worker Required: No Allergies No Known Allergies Allergy (Verified 03/21/25 08:26) HPI Comments Details: 59 y.o F with PMH of who is here for changes in bowel habits. Reports developed diarrhea almost 6 months ago when she was having a BM almost every other hour. Watery, no blood. ALso had to wake up at night to pass a BM. No unintentional weight loss. Used to smoke. etOH occ. Pt started eating string cheese that helped her diarrhea. Last colo was 2 years ago at [facility]. 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 FORMERLY [facility], 1928–1983 Medical History Screening for hyperlipidemia Low back pain Surgical History Hx of colonoscopy No pertinent past surgical history Family History Mother Alcoholic HTN (hypertension) Maternal Grandfather Cancer of unknown origin Other FH: mental illness Substance abuse Social History Housing: House Alcohol intake: former Comment: quit 20 years ago Patient Tobacco Use Status: Former Tobacco user Tobacco use type: Cigarette Cigarettes Per Day: 10 Years Smoked: 20 e-Cigarette/Vaping Use: Never Used Second Hand Smoke Exposure: No Substance Use Type: Former Substance User service: No Current occupational status: employed 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 Current occupational exposures/hazards: Yes Cognitive needs: No Hearing needs: No Vision needs: No Physical Exam Exam Exam: No apparent distress Nonicteric Abdomen soft, nondistended Alert and oriented x3, normal gait Vital Signs: Last Vital Signs Pulse 73 04/17/25 15:25 BP 139/85 09/03/25 15:25 BMI result Body Mass Index 25.8 Assessment & Plan Assessment & Plan (1) Chronic diarrhea: Code(s): K52.9 - Noninfective gastroenteritis and colitis, unspecified Category: Medical (2) Change in bowel function: Code(s): R19.8 - Other specified symptoms and signs involving the digestive system and abdomen Category: Medical Plan Here for chronic diarrhea ongoing x 6 months. Ddx include IBD, microscopic colitis, celiac, malabsorption, hyperthyroidism. Last colo 2 years ago but did not have any sx at that time. Plan: - Labs as below. - Will also check CDiff as high risk due to occupational hazard - EGD/colo to be booked - PEG prep Rxed and instructions reviewed. Follow up after scopes Orders: Orders Calprotectin, Fecal Today K52.9 - Noninfective gastroenteritis and colitis, unspecified TSH reflex Free T4 Today K52.9 - Noninfective gastroenteritis and colitis, unspecified CDiff Gene PCR Today R19.5 - Other fecal abnormalities C Reactive Protein Today K52.9 - Noninfective gastroenteritis and colitis, unspecified Immunoglobulin A Today K52.9 - Noninfective gastroenteritis and colitis, unspecified Transglutaminase IgA Today K52.9 - Noninfective gastroenteritis and colitis, unspecified Medications: New peg 3350-electrolytes 236-22.74-6.74 -5.86 gram (Golytely) as per split prep instructions, until fecal effluent is clear 240 mL PO Q10M 4,000 mL 0RF colonoscopy Coding Level of Care Code New Pt Level 4 (03552) Complex EM visit Add On G2211 Diagnoses Chronic diarrhea K52.9 Change in bowel function R19.8
[2025-04-17 15:25] VITALS: BP 139/85; PULSE 73; BMI 25.8
--- OUTSIDE RECORDS SUMMARY | 2025-04-17 17:08 | XMS_ITS | Clinical Summary ---
Author Organization [facility] Address [address] [place] [address] Care Team Providers Care Classification Inspector Name Role Phone Unavailable Primary Care Provider [...] Plan of Treatment Not on file Insurance [facility] D[facility]AL [facility]
--- OUTSIDE RECORDS SUMMARY | 2025-04-17 17:08 | XMS_ITS | Patient Health Record ---
Author Organization [facility] Address [address] [place] [address] Care Team Providers Care Knocker Out Name Role Phone RAJAT MOULTON NP Primary Care Provider Unavail able SAAD PETTIT Unavailable [phone] Allergies No Known Allergies Reason For Referral [...] Status Risk Notes Problem Postmenopausal atrophic vaginitis (91580791) Postmenopausal atrophic vaginitis (N95.2) Active confirmed Problem Herpes simplex viral infection (44009608) Herpesviral infection, unspecified (B00.9) Active confirmed Plan Of Treatment Pending Test Test Name Order Date Urinalysis 09/07/2019 MM Digital Screening Mammogram 3D 2020 MM Digital Screening Mammogram 3D 2021 MM Digital Screening Mammogram 3D 2019 Insurance Providers Payer Name Payer Address Payer Phone Subscriber Number Group Number Insured Name Patient Relationship to Insured Coverage Start Date Coverage End Date [facility] [address] [place] [address] [phone] [id number] 01 RHEA REEVES Self - patient is the insured Medical (General) History Medical History History ICD Code Headache R51 Herpesviral infection, unspecified B00.9 Surgical History Surgery Date(Month/Year) x 3 Hospitalization History Reason Date(Month/Year) childbirth
--- OUTSIDE RECORDS SUMMARY | 2025-04-17 17:09 | XMS_ITS | Clinical Summary ---
Author Organization 175 [facility] Address [address] [place] [address] Phone Care Team Providers Care Geological E Logger Name Role Phone Christine Venegas MD Primary Care Provider [phone] Allergies No known active allergies Medications acetaminophen [...] Description 02/19/2025 1:15 PM EDT Consult Neurosurgery [place] [address] [place] [address] Kelly Villa MD Piriformis syndrome of right side (Primary Dx) from Last 3 Months Surgical History Surgery Date Site/Laterality Comments SECTION Medical History Medical History Date Comments Genital herpes 10/03/2007 DX:Genital herpe s Bipolar 1 disorder (CMS/HCC V24, CMS/HCC V28) 10/11/2013 DX:Bipolar 1 disorder (HCC) Allergic rhinitis 11/23/2013 DX:Allergic rh initis COPD, mild (CMS/HCC V24, [facility] V28) 09/15/2016 DX:COPD, mild ([facility]) Dermatophytosis of nail 01/29/2013 DX:[place] tophytosis of nail Dyspareunia in female 12/29/2017 DX:Dyspare unia in female 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 DX:Histo ry of positive PPD History of substance abuse ( [facility] V24, [facility] V28) 12/16/2011 DX:History of substance abus e ([facility]); COMMENT: 01/2018 Alcohol and cocaine in remission Insomnia 01/21/2014 DX:Insomnia Major depressive disorder wi th single episode, in full remission ([facility] V24) 12/29/2017 DX:Major depr essive disorder with single episode, in full remission ([facility]) Perimenopausal vasomotor symptoms 12/29/2017 DX:Perimenopausal vasomotor symptoms [...] (2 - Td or Tdap) 01/15/2023 01/15/2013 Depression Screening 08/15/2024 COVID-19 Vaccine ( season) 2025 07/01/2021, 09/19/2020, 08/22/2020 Influenza Vaccine (#1) 2025 , 05/29/2020, 05/30/2019, [...] on patient's age to complete this topic Insurance [facility] Care Teams Geological E Logger Relationship Specialty Start Date End Date Christine Venegas MD PCP - General Internal Medicine 01/31/25
== END 2025-04-17 16:01 | disposition home or self-care (01) ==
LOC: HO.HGI 14:54
PROVIDERS: PCP Internal Medicine; Visit Provider Internal Medicine
DX: K52.9 Noninfective gastroenteritis and colitis, unspecified (principal); R19.8 Other specified symptoms and signs involving the digestive system and abdomen
CPT/HCPCS: 99204; G2211

== ENCOUNTER 2025-04-26 10:36 | Outpatient (REF) | payer OTHER, SELFPAY ==
--- OUTSIDE RECORDS SUMMARY | 2025-04-26 12:14 | XMS_ITS | Patient Health Record ---
Author Organization [employer] [facility] Address [address] [place] [address] Care Team Providers Care Correction Officer Reformatory Name Role Phone RAJAT MOULTON NP Primary Care Provider Unavail able SAAD PETTIT Unavailable [phone] Allergies No Known Allergies Reason For Referral [...] Status Risk Notes Problem Postmenopausal atrophic vaginitis (24415538) Postmenopausal atrophic vaginitis (N95.2) Active confirmed Problem Herpes simplex viral infection (54703318) Herpesviral infection, unspecified (B00.9) Active confirmed Plan Of Treatment Pending Test Test Name Order Date Urinalysis 09/07/2019 MM Digital Screening Mammogram 3D 2020 MM Digital Screening Mammogram 3D 2021 MM Digital Screening Mammogram 3D 2019 Insurance Providers Payer Name Payer Address Payer Phone Subscriber Number Group Number Insured Name Patient Relationship to Insured Coverage Start Date Coverage End Date [facility] [address] [place] [address] [id number] 01 RHEA REEVES Self - patient is the insured Medical (General) History Medical History History ICD Code Headache R51 Herpesviral infection, unspecified B00.9 Surgical History Surgery Date(Month/Year) x 3 Hospitalization History Reason Date(Month/Year) childbirth
--- OUTSIDE RECORDS SUMMARY | 2025-04-26 12:14 | XMS_ITS | Clinical Summary ---
Author Organization [facility] Address [address] [place] [address] Care Team Providers Care Ride Attendant Name Role Phone Unavailable Primary Care Provider [...] Plan of Treatment Not on file Insurance [facility] D[facility] D[facility]
--- OUTSIDE RECORDS SUMMARY | 2025-04-26 12:14 | XMS_ITS | Clinical Summary ---
Author Organization 175 [facility] Address [address] [place] [address] Phone Care Team Providers Care Railroad Hand Name Role Phone Christine Venegas MD Primary Care Provider [phone] Allergies No known active allergies Medications acetaminophen [...] Description 02/19/2025 1:15 PM EDT Consult Neurosurgery [place] [address] [place] [address] Kelly Villa MD Piriformis syndrome of right side (Primary Dx) from Last 3 Months Surgical History Surgery Date Site/Laterality Comments SECTION Medical History Medical History Date Comments Genital herpes 10/03/2007 DX:Genital herpe s Bipolar 1 disorder (CMS/HCC V24, CMS/HCC V28) 10/11/2013 DX:Bipolar 1 disorder (HCC) Allergic rhinitis 11/23/2013 DX:Allergic rh initis COPD, mild (CMS/HCC V24, [facility] V28) 09/15/2016 DX:COPD, mild ([facility]) Dermatophytosis of nail 01/29/2013 DX:[place] tophytosis of nail Dyspareunia in female 12/29/2017 DX:Dyspare unia in female 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 DX:Histo ry of positive PPD History of substance abuse ( [facility] V24, [facility] V28) 12/16/2011 DX:History of substance abus e ([facility]); COMMENT: 01/2018 Alcohol and cocaine in remission Insomnia 01/21/2014 DX:Insomnia Major depressive disorder wi th single episode, in full remission ([facility] V24) 12/29/2017 DX:Major depr essive disorder with single episode, in full remission ([facility]) Perimenopausal vasomotor symptoms 12/29/2017 DX:Perimenopausal vasomotor [...] patient's age to complete this topic Insurance [facility] Care Teams Railroad Hand Relationship Specialty Start Date End Date Christine Venegas MD PCP - General Internal Medicine 01/31/25
[2025-04-27 07:59] LABS: Immunoglobulin A 157 mg/dL (47-310)
== END 2025-04-26 10:37 | disposition home or self-care (01) ==
LOC: HO.LAB 10:36
PROVIDERS: PCP Internal Medicine; Visit Provider Internal Medicine
DX: K52.9 Noninfective gastroenteritis and colitis, unspecified (principal)
CPT/HCPCS: 36415; 82784; 84443; 86140; 86364

== ENCOUNTER 2025-05-13 05:52 | Outpatient (REF) | payer OTHER, SELFPAY ==
--- OUTSIDE RECORDS SUMMARY | 2025-05-13 07:59 | XMS_ITS | Patient Health Record ---
Author Organization [facility] Address [address] [place] [address] Care Team Providers Care Tone Artist Apprentice Name Role Phone RAJAT MOULTON NP Primary Care Provider Unavail able SAAD PETTIT Unavailable [phone] Allergies No Known Allergies Reason For Referral [...] Status Risk Notes Problem Postmenopausal atrophic vaginitis (21422803) Postmenopausal atrophic vaginitis (N95.2) Active confirmed Problem Herpes simplex viral infection (11549480) Herpesviral infection, unspecified (B00.9) Active confirmed Plan Of Treatment Pending Test Test Name Order Date Urinalysis 09/07/2019 MM Digital Screening Mammogram 3D 2020 MM Digital Screening Mammogram 3D 2021 MM Digital Screening Mammogram 3D 2019 Insurance Providers Payer Name Payer Address Payer Phone Subscriber Number Group Number Insured Name Patient Relationship to Insured Coverage Start Date Coverage End Date [facility] [address] [place] [address] [id number] RHEA REEVES Self - patient is the insured Medical (General) History Medical History History ICD Code Headache R51 Herpesviral infection, unspecified B00.9 Surgical History Surgery Date(Month/Year) x 3 Hospitalization History Reason Date(Month/Year) childbirth
--- OUTSIDE RECORDS SUMMARY | 2025-05-13 07:59 | XMS_ITS | Clinical Summary ---
Author Organization 175 [facility] Address [address] [place] [address] Phone Care Team Providers Care Management Manager Name Role Phone Christine Venegas MD Primary Care Provider [phone] Allergies No known active allergies Medications acetaminophen [...] Description 02/19/2025 1:15 PM EDT Consult Neurosurgery [place] [address] [place] [address] Kelly Villa MD Piriformis syndrome of right side (Primary Dx) from Last 3 Months Surgical History Surgery Date Site/Laterality Comments SECTION Medical History Medical History Date Comments Genital herpes 10/03/2007 DX:Genital herpe s Bipolar 1 disorder (CMS/HCC V24, CMS/HCC V28) 10/11/2013 DX:Bipolar 1 disorder (HCC) Allergic rhinitis 11/23/2013 DX:Allergic rh initis COPD, mild (CMS/HCC V24, [facility] V28) 09/15/2016 DX:COPD, mild ([facility]) Dermatophytosis of nail 01/29/2013 DX:[place] tophytosis of nail Dyspareunia in female 12/29/2017 DX:Dyspare unia in female 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 DX:Histo ry of positive PPD History of substance abuse ( [facility] V24, [facility] V28) 12/16/2011 DX:History of substance abus e ([facility]); COMMENT: 01/2018 Alcohol and cocaine in remission Insomnia 01/21/2014 DX:Insomnia Major depressive disorder wi th single episode, in full remission ([facility] V24) 12/29/2017 DX:Major depr essive disorder with single episode, in full remission ([facility]) Perimenopausal vasomotor symptoms 12/29/2017 DX:Perimenopausal vasomotor [...] patient's age to complete this topic Insurance [facility] Care Teams Management Manager Relationship Specialty Start Date End Date Christine Venegas MD PCP - General Internal Medicine 01/31/25
--- OUTSIDE RECORDS SUMMARY | 2025-05-13 07:59 | XMS_ITS | Clinical Summary ---
Author Organization [facility] Address [address] [place] [address] Care Team Providers Care Sewing Room Supervisor Name Role Phone Unavailable Primary Care Provider [...] Plan of Treatment Not on file Insurance [facility] DENTAL [facility] D[facility]AL
[2025-05-13 09:07] LABS: CDiff Gene PCR NEGATIVE (Negative)
[2025-05-18 16:43] LABS: Calprotectin, Fecal 13 mcg/g
== END 2025-05-13 05:53 | disposition home or self-care (01) ==
LOC: HO.LNP 05:52
PROVIDERS: Visit Provider Internal Medicine
DX: R19.5 Other fecal abnormalities (principal); K52.9 Noninfective gastroenteritis and colitis, unspecified
CPT/HCPCS: 83993; 87493

== ENCOUNTER 2025-05-31 07:51 | Day surgery (SDC) | payer OTHER, SELFPAY ==
--- OUTSIDE RECORDS SUMMARY | 2025-05-10 14:04 | XMS_ITS | Patient Health Record ---
Author Organization [employer] [facility] Address [address] [place] [address] Care Team Providers Care Log Skidder Name Role Phone RAJAT MOULTON NP Primary Care Provider Unavail able SAAD PETTIT Unavailable [phone] Allergies No Known Allergies Reason For Referral [...] Status Risk Notes Problem Postmenopausal atrophic vaginitis (77178334) Postmenopausal atrophic vaginitis (N95.2) Active confirmed Problem Herpes simplex viral infection (20071717) Herpesviral infection, unspecified (B00.9) Active confirmed Plan [...] Date [facility] [address] [place] [address] [phone] [id number] 01 RHEA REEVES Self - patient is the insured Medical (General) History Medical History History ICD Code Headache R51 Herpesviral infection, unspecified B00.9 Surgical History Surgery Date(Month/Year) x 3 Hospitalization History Reason Date(Month/Year) childbirth
--- OUTSIDE RECORDS SUMMARY | 2025-05-10 14:04 | XMS_ITS | Clinical Summary ---
Author Organization 175 [facility] Address [address] [place] [address] Phone Care Team Providers Care Manager Review Name Role Phone Christine Venegas MD Primary Care Provider [phone] Allergies No known active allergies Medications acetaminophen [...] Description 02/19/2025 1:15 PM EDT Consult Neurosurgery [place] [address] [place] [address] Kelly Villa MD Piriformis syndrome of right side (Primary Dx) from Last 3 Months Surgical History Surgery Date Site/Laterality Comments SECTION Medical History Medical History Date Comments Genital herpes 10/03/2007 DX:Genital herpe s Bipolar 1 disorder (CMS/HCC V24, CMS/HCC V28) 10/11/2013 DX:Bipolar 1 disorder (HCC) Allergic rhinitis 11/23/2013 DX:Allergic rh initis COPD, mild (CMS/HCC V24, [facility] V28) 09/15/2016 DX:COPD, mild ([facility]) Dermatophytosis of nail 01/29/2013 DX:[place] tophytosis of nail Dyspareunia in female 12/29/2017 DX:Dyspare unia in female 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 DX:Histo ry of positive PPD History of substance abuse ( [facility] V24, [facility] V28) 12/16/2011 DX:History of substance abus e ([facility]); COMMENT: 01/2018 Alcohol and cocaine in remission Insomnia 01/21/2014 DX:Insomnia Major depressive disorder wi th single episode, in full remission ([facility] V24) 12/29/2017 DX:Major depr essive disorder with single episode, in full remission ([facility]) Perimenopausal vasomotor symptoms 12/29/2017 DX:Perimenopausal vasomotor symptoms [...] patient's age to complete this topic Insurance [facility] Care Teams Manager Review Relationship Specialty Start Date End Date Christine Venegas MD PCP - General Internal Medicine 01/31/25
--- OUTSIDE RECORDS SUMMARY | 2025-05-10 14:04 | XMS_ITS | Clinical Summary ---
Author Organization [facility] Address [address] [place] [address] Care Team Providers Care Air Hammer Stripper Name Role Phone Unavailable Primary Care Provider [...] Plan of Treatment Not on file Insurance [facility]
[2025-05-29 07:38] VITALS: BMI 25.7
--- NOTE | 2025-05-29 09:22 | HO.ANESPROP2 ---
Documented by User: Connie Liu NP 05/29/25 09:22 HPI - Anesthesia Eval Consult details Narrative: 59yo F for Upper Endoscopy and Colonoscopy [facility] Active Problems Active Problems: All Active Problems Prediabetes (Acute) Overweight (Acute) Chronic diarrhea (Acute) Piriformis syndrome of right side (Acute) certified paralegal (current) use of non-steroidal anti-inflammatories (nsaid) (Acute) Piriformis syndrome (Acute) Right leg pain (Acute) Swelling of skeletal muscle (Acute) Lumbar spondylosis (Acute) Lumbar radiculopathy, chronic (Acute) Trochanteric bursitis, right hip (Acute) Hair loss (Acute) Encounter to establish care (Acute) Screening for cervical cancer (Acute) Groin pain (Acute) Frequent urination (Acute) Loose stools (Acute) Change in bowel function (Acute) Past Medical History Medical History Smoker Screening for hyperlipidemia Low back pain Family History Family History Mother Alcoholic HTN (hypertension) Maternal Grandfather Cancer of unknown origin Other FH: mental illness Substance abuse Surgical History Surgical History Hx of colonoscopy Social History Social History Housing: House Are you a primary foster care therapist to a significant other at home: No Do you presently have visiting nurse or other home services: No Alcohol intake: former Comment: quit 20 years ago Patient Tobacco Use Status: Current everyday Tobacco user Tobacco use type: Cigarette Cigarettes Per Day: 10 Years Smoked: 20 Smoked in Last 30 Days: Yes e-Cigarette/Vaping Use: Never Used Patient Interested in Nicotine Replacement: No Second Hand Smoke Exposure: No Substance Use Type: Former Substance User Have you been hit, kicked, punched, or otherwise hurt by someone within the past year? 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 Current occupational exposures/hazards: Yes Cognitive needs: No Hearing needs: No Vision needs: No Meds Allergies Allergy/AdvReac Type Severity Reaction Status Date / Time No Known Allergies Allergy Verified 05/31/25 08:32 Home Medications ?Medication ?Instructions ?Recorded ?Confirmed ?Last Taken ?Type acetaminophen 650 mg 650 - 1,300 mg PO Q8H PRN pain 04/17/25 05/29/25 Unknown History tablet,extended release gabapentin 800 mg tablet 800 mg PO NEEDED PRN Pain, 04/17/25 05/31/25 Unknown History Moderate loratadine 10 mg tablet 10 mg PO DAILY 04/17/25 05/29/25 Unknown History Exam Height,Weight and Vital Signs: Height 5 ft 1 in Weight 61.689 kg Assessment and Plan Assessment Anesthesia Assessment: Chart Reviewed Documented by User: Anisha Cordoba MD 05/31/25 09:25 [facility] Past Medical History Medical History Smoker Screening for hyperlipidemia Low back pain Family History Family History Mother Alcoholic HTN (hypertension) Maternal Grandfather Cancer of unknown origin Other FH: mental illness Substance abuse Family history of problems with anesthesia: No Surgical History Surgical History Hx of colonoscopy History of Problems with Anesthesia: No Social History Social History Housing: House Are you a primary foster care therapist to a significant other at home: No Do you presently have visiting nurse or other home services: No Alcohol intake: former Comment: quit 20 years ago Patient Tobacco Use Status: Current everyday Tobacco user Tobacco use type: Cigarette Cigarettes Per Day: 10 Years Smoked: 20 Smoked in Last 30 Days: Yes e-Cigarette/Vaping Use: Never Used Patient Interested in Nicotine Replacement: No Second Hand Smoke Exposure: No Substance Use Type: Former Substance User Have you been hit, kicked, punched, or otherwise hurt by someone within the past year? 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 Current occupational exposures/hazards: Yes Cognitive needs: No Hearing needs: No Vision needs: No Meds Allergies Allergy/AdvReac Type Severity Reaction Status Date / Time No Known Allergies Allergy Verified 05/31/25 08:32 Home Medications ?Medication ?Instructions ?Recorded ?Confirmed ?Last Taken ?Type acetaminophen 650 mg 650 - 1,300 mg PO Q8H PRN pain 04/17/25 05/29/25 Unknown History tablet,extended release gabapentin 800 mg tablet 800 mg PO NEEDED PRN Pain, 04/17/25 05/31/25 Unknown History Moderate loratadine 10 mg tablet 10 mg PO DAILY 04/17/25 05/29/25 Unknown History Exam Airway Mallampati Class: II TM Dist: >3cm Neck ROM: Full Heart: rrr Lungs: cta Assessment and Plan Assessment Anesthesia Assessment: Anesthesia Plan Discussed Final Anesthetic Review Family History of Problems with Anesthesia: No History of Problems with Anesthesia: No NPO: Yes ASA Class: II Final Preanesthetic Review: No Changes in Pt Med Stat, Meds/Allgs Chart Reviewed, Consent Obtained/Reviewed and Anes Risks/Benef Reviewed Patient Risk: Low Procedure Risk: Low Anesthetic Plan Anesthetic Plan: MAC: and Agree w/ Assess. and Plan Disposition: Standard PACU
[2025-05-31 08:18] VITALS: BMI 27.2
[2025-05-31] MEDS: Lactated Ringers 1,000 ML 100 ML IVCONT (08:29)
[2025-05-31 08:31] VITALS: BP 134/86; PULSE 82; RESP 18; TEMP 36.7; O2SAT 99
--- NOTE | 2025-05-31 09:02 | MHC.SHP ---
Pre-Procedural Eval Section A - 24 Hr Update-Section A only Date of Service: 05/31/25 The patient is an INPATIENT: No The patient has been examined within 24 hours of the surgical procedure. The History & Physical has been completed within 30 days and I have reviewed it.: Yes Section B - Complete if H&P > 30 days Chief Complaint: Noninfective gastroenteritis and colitis, Allergies: Allergies Allergy/AdvReac Type Severity Reaction Status Date / Time No Known Allergies Allergy Verified 05/31/25 08:32 Plan Diagnosis/Plan: Unchanged I have reviewed the history and physical and performed a pertinent physical examination on my patient. No changes have occurred unless specified. Time Spent With Patient Time: Total time managing care of this patient today ____ minutes.
--- NOTE | 2025-05-31 09:34 | P.OPN-COLO_ITS ---
Colonoscopy Operative Note Operative Note Date of Service: 05/31/25 Narrative: Procedure: Upper endoscopy and colonoscopy Indication: Chronic diarrhea Endoscopist: Cindy Rothman MD Anesthesia Provider: Florencio Torrez CRNA Anesthesia type: MAC Instrument: [id number] and [id number]-[id number] EGD Procedure:?? The procedure, indications, preparation and potential complications were reviewed with the patient, who indicated understanding and gave written informed consent to proceed. The endoscope was introduced through the mouth, and advanced to the 2nd part of the duodenum. The mucosa was carefully examined on slow withdrawal of the endoscope. The patient tolerated the procedure well. There were no immediate complications.? EGD Findings:? * Esophagus:? There was a focal area of heterotopic gastric mucosa in upper esophagus. Remaining esophageal mucosa was normal. The Z-line was at 35 cm. * Stomach:? Erythema and scant heme in fundus and body of the stomach. Retroflexion was performed in the cardia. Random cold forceps biopsies were taken from the stomach. * Duodenum:? Normal duodenal mucosa. Cold forceps biopsies were taken from the duodenal bulb and 2nd portion of the duodenum to rule out celiac sprue. Colonoscopy Procedure:? The patient was then turned for the colonoscopy. A digital rectal exam was performed which was abnormal for ext hemorrhoids.? A distal attachment cap was affixed to the tip of the scope and the colonoscope was then inserted through the anus and advanced through the colon and advanced to the cecum at 70 cm and terminal ileum.? Appendiceal orifice and ileocecal valve were identified. Mucosa was carefully examined under high definition white light as the instrument was slowly withdrawn in a retrograde panoramic fashion. Retroflexion was performed in ascending colon and rectum. The procedure was not difficult. The quality of the prep was BBPS: 3+2+3 = adequate Withdrawal time 9 minutes Limitations: No limitations Findings: Mucosa: Normal colon and terminal ileum mucosa. Cold forceps biopsies were taken from right and left side of the colon to r/o microscopic colitis. Protruding lesions: * Medium internal hemorrhoids without stigmata of recent bleeding. Impression: 1. Inlet patch 2. Normal esophageal mucosa 3. Gastritis (biopsy) 4. Normal duodenum (biopsy) 5. Normal colon and terminal ileum mucosa (biopsy) 6. Internal and external hemorrhoids Recommendations:?? * Follow-up path results * Start omeprazole 20 once daily x 8-12 weeks * Avoid NSAIDs * H Pylori treatment if biopsies + * Repeat colonoscopy for CRC screening in 10 years.
[2025-05-31 09:36] VITALS: BP 126/78; PULSE 86; RESP 16; TEMP 36.9; O2SAT 100
--- NOTE | 2025-05-31 09:36 | PC.NURSE ---
0848 dr. padilla and jayce elizondo updated that patient gum she was chewing was removed at 0810. both assessed patient. okay to proceed. no interventions.
[2025-05-31 09:51] VITALS: BP 126/78; PULSE 70; RESP 24; TEMP 36.9; O2SAT 100
== END 2025-05-31 10:13 | disposition home or self-care (01) ==
PROVIDERS: PCP Internal Medicine; Visit Provider Internal Medicine
PROC: (CPT 45380; principal; 2025-05-31 09:00)
DX: K52.9 Noninfective gastroenteritis and colitis, unspecified (principal); R19.8 Other specified symptoms and signs involving the digestive system and abdomen; K29.70 Gastritis, unspecified, without bleeding; K31.89 Other diseases of stomach and duodenum; K64.4 Residual hemorrhoidal skin tags; K64.8 Other hemorrhoids
CPT/HCPCS: 45380; 43239; 88305; 88342; J2704

== ENCOUNTER → 2025-05-31 07:51 | Outpatient (BNV) | payer OTHER, SELFPAY | PROVIDERS: PCP Internal Medicine; Visit Provider Internal Medicine | DX: K52.9 Noninfective gastroenteritis and colitis, unspecified (principal); K64.8 Other hemorrhoids; K22.89 Other specified disease of esophagus; K29.70 Gastritis, unspecified, without bleeding | CPT/HCPCS: 43239; 45380 ==

== ENCOUNTER 2025-08-01 10:35 | Outpatient (AMB) | payer OTHER, SELFPAY ==
--- NOTE | 2025-08-01 10:36 | A.OFFVIS_ITS ---
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 wants to have valacyclovir rx for outbreaks in vaginal area last outbreak 6 months ago Coordinator Mining Products Required: No Information Interpreted: non-clinical & clinical Sap Sd Analyst: Sap Sd Analyst Present ([place]) Accompanied by: Self / Same As Patient Allergies No Known Allergies Allergy (Verified 08/01/25 10:41) Medication List - Last Reconciled 08/01/25 by Rebecca Garcia LPN acetaminophen ER 650 - 1,300 mg PO Q8H PRN gabapentin 800 mg PO NEEDED PRN ibuprofen 600 mg PO Q6H PRN loratadine 10 mg PO DAILY omeprazole 20 mg PO DAILY ondansetron HCl 4 mg PO Q8H PRN Wegovy (semaglutide (weight loss)) 0.25 mg (0.5 mL) subcut QWEEK NS Do you need a note to return to daycare/school/sports/work: No HPI Comments Details: Patient is a postmenopausal woman 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 Currently sexually active with . Denies any vaginal dryness or irritation. STI testing offered; she declines. Attempting to eat a healthy diet with calcium and vitamin D, started Wegovy 2 weeks ago for weight loss, no regular exercise. Last pap smear; unknown, negative. Last mammogram; 2024-[facility], no records available. Colonoscopy is [facility] Medical History Smoker Screening for hyperlipidemia Low back pain Surgical History Hx of colonoscopy Family History Mother Alcoholic HTN (hypertension) Maternal Grandfather Cancer of unknown origin Other FH: mental illness Substance abuse Social History Housing: House Are you a primary rn urgent care to a significant other at home: No Do you presently have visiting nurse or other home services: No Alcohol intake: former Comment: quit 20 years ago Patient Tobacco Use Status: Current everyday Tobacco user Tobacco use type: Cigarette Cigarettes Per Day: 10 Years Smoked: 20 e-Cigarette/Vaping Use: Never Used Second Hand Smoke Exposure: No Substance Use Type: Former Substance User service: No Current occupational status: employed 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 Current occupational exposures/hazards: Yes Cognitive needs: No Hearing needs: No Vision needs: No Female Reproductive History Menstrual Age of Menarche: 14 Menopause type: natural Age of menopause: 51 Total pregnancies: 3 Number of Living Children: 3 Date of last pap smear: 08/01/24 ([facility]) History of abnormal pap smear: No Date of Mammogram: 01/30/25 (done at [facility]) History of abnormal mammogram: No Review of Systems Const All systems reviewed & are unremarkable except as noted in HPI and below Reports as per HPI Eyes Reports no additional complaints ENT Reports no additional complaints Card Reports no additional complaints Resp Reports no additional complaints GI Reports as per HPI and Reports no additional complaints Reports as per HPI Musc Reports no additional complaints Skin/Breast Reports as per HPI Neuro Reports no additional complaints Psych Reports no additional complaints Endo Reports no additional complaints [place]/Lymph Reports no additional complaints Aller/Immun Reports no additional complaints Physical Exam Vital Signs: Last Vital Signs BP 124/76 08/01/25 10:38 BMI result Body Mass Index 27.0 Const General: cooperative, healthy appearing, no acute distress, well developed and alert Orientation/consciousness: patient oriented x3 HEENT Head: Yes normal to inspection Eyes General: appearance normal, both eyes and all related structures Neck Neck: Yes normal visual inspection Thyroid: Thyroid normal Chest Chest palpation & inspection: normal inspection of the chest and other (no puckering, dimpling, peau de orange, retraction, discharge, masses) Breast/axilla inspection: normal inspection of the breasts Breast/axilla palpation: normal palpation of the breasts Resp Effort & Inspection: normal respiratory effort GI Inspection: Yes normal to inspection Palpation (GI): Soft to palpation Rectal Exam - Female: deferred General: Yes bladder normal to palpation External Female Exam: normal external appearance and normal appearance of the urethra Speculum Exam - Vagina: normal appearance of the vagina, normal palpation and normal vaginal discharge Speculum Exam - Cervix: normal appearance of the cervix and normal palpation Bimanual exam- vagina & uterus: normal bimanual exam, normal palpation, uterine size normal, bladder normal to palpation, normal palpation and non-tender Bimanual Exam- Adnexa, other: no masses Skin General skin exam: no rashes or lesions noted Rashes: no rashes Neuro General: patient oriented x3 Cognition (Neuro): normal cognition Extrem General: Yes normal to inspection Psych Attitude: cooperative Thought process: Normal thought process present Assessment & Plan Assessment & Plan (1) Encounter for well woman exam with routine gynecological exam: Code(s): Z01.419 - Encounter for gynecological examination (general) (routine) without abnormal findings Category: Medical Plan Discussed: Current recommendations for pap smears per ASCCP guidelines. Pap obtained await results for final plan of care. Breast awareness, periodic self breast exams and yearly mammogram. Maintain a healthy lifestyle, well balanced diet including Calcium 1,200 mg and Vitamin D 600 IU daily, and routine exercise. Informational handouts provided for menopausal, diet, calcium, vitamin-D supplements and exercise. Contact the office with any postmenopausal bleeding. Patient verbalizes understanding and agrees to the plan of care. She was given opportunity to ask questions and all questions were answered to the best of my ability. RTO in 1 year for annual sprayer machine exam. This note is constructed using voice recognition software. While every effort has been made to ensure accuracy, tuckpointer cleaner caulker errors may have been included. Orders: Orders Pap Smear Today Z01.419 - Encounter for gynecological examination (general) (routine) without abnormal findings HPV High risk Today Z01.419 - Encounter for gynecological examination (general) (routine) without abnormal findings MM tomosynthesis screening BI Today Z12.31 - Encounter for screening mammogram for malignant neoplasm of breast Medications: New valacyclovir (Valtrex) Take with onset of symptoms for 3 days 500 mg PO BID 30 tabs 1RF 3 days Coding Level of Care Code New Pt Prev Care 40-64y(74391) Diagnoses Encounter for well woman exam with routine gynecological exam Z01.419
[2025-08-01 10:38] VITALS: BP 124/76; BMI 27.0
--- OUTSIDE RECORDS SUMMARY | 2025-08-01 13:18 | XMS_ITS | Clinical Summary ---
Author Organization [address] [facility] Address [address] [place] [address] Phone Care Team Providers Care Stencil Cutter Name Role Phone Christine Venegas MD Primary Care Provider [phone] Allergies No known active allergies Medications acetaminophen [...] for pain Max Daily Amount: 20 mg 5 Active Active Problems Problem Noted Date Diagnosed [...] couple of months to reassess the situation. Surgical History Surgery Date Site/Laterality Comments SECTION Medical History Medical History Date Comments Genital herpes 10/03/2007 DX:Genital herpe s Bipolar 1 disorder ([facility] V24, [facility] V28) 10/11/2013 DX:Bipolar 1 disorder ([facility]) Allergic rhinitis 11/23/2013 DX:Allergic rh initis COPD, mild ([facility] V24, [facility] V28) 09/15/2016 DX:COPD, mild ([facility]) Dermatophytosis of nail 01/29/2013 DX:[place] tophytosis of nail Dyspareunia in female 12/29/2017 DX:Dyspare unia in female 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 DX:Histo ry of positive PPD History of substance abuse ( [facility] V24, [facility] V28) 12/16/2011 DX:History of substance abus e ([facility]); COMMENT: 01/2018 Alcohol and cocaine in remission Insomnia 01/21/2014 DX:Insomnia Major depressive disorder wi th single episode, in full remission ([facility] V24) 12/29/2017 DX:Major depr essive disorder with single episode, in full remission ([facility]) Perimenopausal vasomotor symptoms 12/29/2017 DX:Perimenopausal [...] on file Sexual Orientation Not on file Last Filed Vital Signs Vital Sign Reading [...] Last Done Comments Breast Cancer Screening 1966 Colorectal Cancer Screening: Colonoscopy 1966 Pneumococcal Vaccine: 50+ Years (1 of 2 - PCV) 1985 Cervical Cancer Screening: Pap Smear 1987 Hepatitis B Vaccines (2 of 3 - 19+ 3-dose series) 04/30/2004 04/02/2004 RSV Immunization Adult Patients (1 - Risk 50-74 years 1-dose series) 2016 Zoster Vaccines (1 of 2) 2016 HIV Screening 07/18/2022 Hepatitis C Screening 07/18/2022 [...] patient's age to complete this topic Insurance Care Teams Stencil Cutter Relationship Specialty Start Date End Date Christine Venegas MD PCP - General Internal Medicine 01/31/25
--- OUTSIDE RECORDS SUMMARY | 2025-08-01 13:18 | XMS_ITS | Patient Health Record ---
Author Organization [employer] [facility] Address [address] [place] [address] Care Team Providers Care Human Resource Management Instructor Name Role Phone RAJAT MOULTON NP Primary Care Provider Unavail able SAAD PETTIT Unavailable [phone] Allergies No Known Allergies Reason For Referral [...] Status Risk Notes Problem Postmenopausal atrophic vaginitis (68600238) Postmenopausal atrophic vaginitis (N95.2) Active confirmed Problem Herpes simplex viral infection (15092811) Herpesviral infection, unspecified (B00.9) Active confirmed Plan Of Treatment Pending Test Test Name Order Date Urinalysis 09/07/2019 MM Digital Screening Mammogram 3D 2020 MM Digital Screening Mammogram 3D 2021 MM Digital Screening Mammogram 3D 2019 Insurance Providers Payer Name Payer Address Payer Phone Subscriber Number Group Number Insured Name Patient Relationship to Insured Coverage Start Date Coverage End Date [facility] [address] [place] [address] [phone] [id number] RHEA REEVES Self - patient is the insured Medical (General) History Medical History History ICD Code Headache R51 Herpesviral infection, unspecified B00.9 Surgical History Surgery Date(Month/Year) x 3 Hospitalization History Reason Date(Month/Year) childbirth
== END 2025-08-01 11:30 | disposition home or self-care (01) ==
LOC: HO.HWS 10:36
PROVIDERS: PCP Internal Medicine; Visit Provider Advanced Practice Midwife
DX: Z01.419 Encounter for gynecological examination (general) (routine) without abnormal findings (principal)
CPT/HCPCS: 99386; 99459

== ENCOUNTER 2025-08-01 10:35 | Outpatient (REF) | payer OTHER, SELFPAY | END 2025-08-01 10:36 | disposition home or self-care (01) | LOC: HO.LNP 10:35 | PROVIDERS: PCP Internal Medicine; Visit Provider Advanced Practice Midwife | DX: Z01.419 Encounter for gynecological examination (general) (routine) without abnormal findings (principal); Z11.51 Encounter for screening for human papillomavirus (HPV) | CPT/HCPCS: 87626; 88175 ==

== ENCOUNTER 2025-08-12 14:11 | Outpatient (AMB) | payer OTHER, SELFPAY ==
--- NOTE | 2025-08-12 14:26 | A.OFFVIS_ITS ---
Vital Signs 08/12/25 14:27 Height 5 ft 1 in Weight 141 lb 1.533 oz BMI 26.7 BP 143/82 H Blood Pressure Location Lt brachial Position Sitting Pulse 79 Intake Visit Reasons: s/p colo and egd Intake Note: Nila presents in the office as a follow up for her colo and EGD. CC: No concerns just here for results! 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 Reports developed diarrhea almost 6 months ago when she was having a BM almost every other hour. Watery, no blood. ALso had to wake up at night to pass a BM. No unintentional weight loss. Used to smoke. etOH occ. Pt started eating string cheese that helped her diarrhea. Last colo was 2 years ago at [facility]. 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 05/31/25: 1. Inlet patch 2. Normal esophageal mucosa 3. Gastritis (biopsy) 4. Normal duodenum (biopsy) 5. Normal colon and terminal ileum mucosa (biopsy) 6. Internal and external hemorrhoids A. Duodenum, biopsy: Duodenal mucosa with preserved villi and no specific change. B. Stomach, random, biopsy: Gastric antral and body mucosa with mild reactive changes and focal minimal chronic inactive inflammation; negative for intestinal metaplasia and dysplasia. C. Colon, right, biopsy: Colonic mucosa with lymphoid aggregate and no specific change; no evidence of microscopic colitis. D. Colon, left, biopsy: Colonic mucosa with no specific change; no evidence of microscopic colitis. Comment: (B): Immunostain for H. pylori pending; addendum to follow 08/12/25: Here for post procedure follow up. No acute GI sx. Has been doing well. Recently started GLP-1A for weight loss and excited to see the progress. Labs and path reviewed with the pt, overall reassuring. No polyps, so next colo will be due in 2034. [facility] Medical History Smoker Screening for hyperlipidemia Low back pain Surgical History (Updated 08/12/25 @ 14:31 by LYUBOV Kaufman) History of esophagogastroduodenoscopy (EGD) Hx of colonoscopy Family History Mother Alcoholic HTN (hypertension) Maternal Grandfather Cancer of unknown origin Other FH: mental illness Substance abuse Social History Housing: House Are you a primary body care manager to a significant other at home: No Do you presently have visiting nurse or other home services: No Alcohol intake: former Comment: quit 20 years ago Patient Tobacco Use Status: Current everyday Tobacco user Tobacco use type: Cigarette Cigarettes Per Day: 10 Years Smoked: 20 e-Cigarette/Vaping Use: Never Used Second Hand Smoke Exposure: No Substance Use Type: Former Substance User service: No Current occupational status: employed 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 Current occupational exposures/hazards: Yes Cognitive needs: No Hearing needs: No Vision needs: No Female Reproductive History Menstrual Age of Menarche: 14 Review of Systems Const All systems reviewed & are unremarkable except as noted in HPI and below Physical Exam Exam Exam: No apparent distress Nonicteric Abdomen soft, nondistended Alert and oriented x3, normal gait Vital Signs: Last Vital Signs Pulse 79 08/12/25 14:27 BP 143/82 H 08/12/25 14:27 BMI result Body Mass Index 26.7 Assessment & Plan Assessment & Plan (1) Change in bowel function: Code(s): R19.8 - Other specified symptoms and signs involving the digestive system and abdomen Category: Medical (2) Gastritis: Code(s): K29.70 - Gastritis, unspecified, without bleeding Category: Medical Plan Results of EGD/colo reviewed with the pt. Mild gastritis with out H Pylori or GIM. Pt to cont omeprazole 20 for 90d total. No colitis on Bx. No polyps either. Pt currently without any acute GI sx. 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 Otherwise PRN follow up. CRC screening due in 2034. Coding Level of Care Code Est Pt Level 3 (65452) Diagnoses Change in bowel function R19.8 Gastritis K29.70
[2025-08-12 14:27] VITALS: BP 143/82; PULSE 79; BMI 26.7
--- OUTSIDE RECORDS SUMMARY | 2025-08-12 16:36 | XMS_ITS | Patient Health Record ---
Author Organization [facility] Address [address] [place] [address] Care Team Providers Care Operator Name Role Phone RAJAT MOULTON NP Primary Care Provider Unavail able SAAD PETTIT Unavailable [phone] Allergies No Known Allergies Reason For Referral [...] Status Risk Notes Problem Postmenopausal atrophic vaginitis (50141430) Postmenopausal atrophic vaginitis (N95.2) Active confirmed Problem Herpes simplex viral infection (04289057) Herpesviral infection, unspecified (B00.9) Active confirmed Plan Of Treatment Pending Test Test Name Order Date Urinalysis 09/07/2019 MM Digital Screening Mammogram 3D 2020 MM Digital Screening Mammogram 3D 2021 MM Digital Screening Mammogram 3D 2019 Insurance Providers Payer Name Payer Address Payer Phone Subscriber Number Group Number Insured Name Patient Relationship to Insured Coverage Start Date Coverage End Date [facility] [address] [place] [address] [id number] RHEA REEVES Self - patient is the insured Medical (General) History Medical History History ICD Code Headache R51 Herpesviral infection, unspecified B00.9 Surgical History Surgery Date(Month/Year) x 3 Hospitalization History Reason Date(Month/Year) childbirth
--- OUTSIDE RECORDS SUMMARY | 2025-08-12 16:36 | XMS_ITS | Clinical Summary ---
Author Organization [address] [facility] Address [address] [place] [address] Phone Care Team Providers Care Pipe Puller Name Role Phone Christine Venegas MD Primary Care Provider [phone] Allergies No known active allergies Medications acetaminophen [...] 10/03/2007 DX:Genital herpe s Bipolar 1 disorder ([facility] V24, [facility] V28) 10/11/2013 DX:Bipolar 1 disorder ([facility]) Allergic rhinitis 11/23/2013 DX:Allergic rh initis COPD, mild ([facility] V24, [facility] V28) 09/15/2016 DX:COPD, mild ([facility]) Dermatophytosis of nail 01/29/2013 DX:Silo tophytosis of nail Dyspareunia in female 12/29/2017 DX:Dyspare unia in female 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 DX:Histo ry of positive PPD History of substance abuse ( [facility] V24, [facility] V28) 12/16/2011 DX:History of substance abus e ([facility]); COMMENT: 01/2018 Alcohol and cocaine in remission Insomnia 01/21/2014 DX:Insomnia Major depressive disorder wi th single episode, in full remission ([facility] V24) 12/29/2017 DX:Major depr essive disorder with single episode, in full remission ([facility]) Perimenopausal vasomotor symptoms 12/29/2017 DX:Perimenopausal [...] to complete this topic Insurance Care Teams Pipe Puller Relationship Specialty Start Date End Date Christine Venegas MD PCP - General Internal Medicine 01/31/25
== END 2025-08-12 15:10 | disposition home or self-care (01) ==
LOC: HO.HGI 14:12
PROVIDERS: PCP Internal Medicine; Visit Provider Internal Medicine
DX: R19.8 Other specified symptoms and signs involving the digestive system and abdomen (principal); K29.70 Gastritis, unspecified, without bleeding
CPT/HCPCS: 99213